=== PATIENT | male | born 1975 | race Caucasian/White ===

== ENCOUNTER 2017-04-28 22:17 | Emergency (ER) | payer SELFPAY ==
[2017-04-28 22:32] VITALS: BP 143/77; PULSE 100; TEMP 98.2; BMI 25.8
--- NOTE | 2017-04-28 23:29 | PDOC ---
History of Present Illness - History of Present Illness Initial Comments: 04/28/17 23:37 Patient is a 41 year old male with no significant medical hx who has been brought to the ED via EMS for alcohol intoxication. The patient was found passed out on the ground outside on the street. The patient is a poor historian and states that he does not know why he was brought here. He notes that he had two [place] iced teas today. Denies any headache, abdominal pain, chest pain , shortness of breath, nausea, vomiting, or diarrhea. Patient is requesting to go home and does not offer any complaints. <Hiral Barrow - Last Filed: 04/28/17 23:37> <Mohamud Chowdhury - Last Filed: 04/29/17 00:32> - General Chief Complaint: Alcohol intoxication Stated Complaint: Alcohol intoxication Time Seen by Provider: 04/28/17 23:09 Past History <Hiral Barrow - Last Filed: 04/28/17 23:37> - Psycho/Social/Smoking Cessation Hx Suicidal Ideation: No Smoking History: Unknown if ever smoked Information on smoking cessation initiated: No Hx Alcohol Use: No Drug/Substance Use Hx: No <Mohamud Chowdhury - Last Filed: 04/29/17 00:32> - Past Medical History Allergies/Adverse Reactions: Allergies Allergy/AdvReac Type Severity Reaction Status Date / Time No Known Allergies Allergy Verified 04/28/17 22:28 Home Medications: Ambulatory Orders Acetaminophen [Tylenol] 650 mg PO QID PRN #30 tablet 02/26/14 Review of Systems - Review of Systems Comments:: 04/28/17 23:39 CONSTITUTIONAL: No fever, no chills, no fatigue EYES: No visual changes ENT: No ear pain, no sore throat CARDIOVASCULAR: No chest pain, no palpitations RESPIRATORY: No cough, no SOB GI: No abdominal pain, no nausea, no vomiting, no constipation, no diarrhea GENITOURINARY: No dysuria, no frequency, no hematuria MUSKULOSKELETAL: No backpain, no joint pain, no myalgias SKIN: No rash NEURO: No headache <Hiral Barrow - Last Filed: 04/28/17 23:37> *Physical Exam - Vital Signs Last Vital Signs Temp Pulse Resp BP Pulse Ox 98.2 F 100 H 14 143/77 96 04/28/17 22:31 04/28/17 22:31 04/28/17 22:31 04/28/17 22:31 04/28/17 22:31 - Physical Exam Comments: 04/28/17 23:39 CONSTITUTIONAL: Obese; alcohol on breath; in no apparent distress HEAD: Normocephalic; atraumatic EYES: PERRL; EOM intact ENMT: External appears normal; normal oropharynx NECK: Supple; non-tender; no cervical lymphadenopathy CARD: Normal S1, S2; no murmurs, rubs, or gallops RESP: Normal chest excursion with respiration; breath sounds clear and equal bilaterally; no wheezes, rhonchi, or rales ABD: Soft, non-distended; non-tender; no palpable organomegaly, reproducible umbilical hernia EXT: Normal ROM in all four extremities; non-tender to palpation; distal pulses intact SKIN: Warm, dry, no rash NEURO: No focal neurological deficiencies; gait is stable <Hiral Barrow - Last Filed: 04/28/17 23:37> - Vital Signs Last Vital Signs Temp Pulse Resp BP Pulse Ox 98.2 F 100 H 14 143/77 96 04/28/17 22:31 04/28/17 22:31 04/28/17 22:31 04/28/17 22:31 04/28/17 22:31 <Mohamud Chowdhury - Last Filed: 04/29/17 00:32> Medical Decision Making - Medical Decision Making 04/29/17 00:29 Patient is a well-appearing 41-year-old male who presented to the ER after being unresponsive on the ground. Patient reports consuming several alcoholic beverages and falling asleep. Patient denies head trauma/headache/changes in visual acuity/nausea/vomiting/chest pain/abdominal pain. There is no evidence of head trauma, full range of motion in all 4 extremities, cervical spine reveals no deformity or midline tenderness. Patient knows where he is, how to get at home and is displaying steady gait. Will discharge. <Mohamud Chowdhury - Last Filed: 04/29/17 00:32> *DC/Admit/Observation/Transfer - Attestations Scribe Attestion: 04/28/17 23:42 Documentation prepared by Hiral Barrow, acting as certified medical asst for Mohamud Chowdhury MD. <Hiral Barrow - Last Filed: 04/28/17 23:37> - Attestations Physician Attestion: 04/29/17 00:29 The documentation was prepared by the scribe under my direct supervision. I have reviewed the documentation which correctly represents the findings, medical decision-making and critical action taken by me. <Mohamud Chowdhury - Last Filed: 04/29/17 00:32> Diagnosis at time of Disposition: Alcohol abuse - Discharge Dispostion Disposition: HOME Condition at time of disposition: Stable - Referrals Referrals: [facility] [Provider Group] - Patient Instructions Printed Discharge Instructions: DI for Alcohol Abuse
[2017-04-28] MEDS ORDERED: DEXTROSE 5%-0.45% SALINE 1,000 ML IV SCH (23:30)
== END 2017-04-29 00:54 | disposition home or self-care (01) ==
LOC: JER 22:17
DX: F10.120 Alcohol abuse with intoxication, uncomplicated (principal); Y90.9 Presence of alcohol in blood, level not specified
CPT/HCPCS: 99282-25

== ENCOUNTER 2020-10-22 16:27 | Emergency (ER) | payer SELFPAY ==
[2020-10-22 16:36] VITALS: TEMP 98.3; BMI 30.9
[2020-10-22 17:56] LABS: BASO % 1.4 % (0-2.0); HEMATOCRIT 25.4 % (35.4-49); HEMOGLOBIN 7.4 GM/dL (11.7-16.9); MCHC 29.2 g/dl (32.0-35.9); MEAN CELL VOLUME 65.5 fl (80-96); MEAN PLT VOLUME 8.6 fl (7.5-11.1); MONO % 8.7 % (3.8-10.2); NEUT % 72.9 % (42.8-82.8); PLATELET COUNT 99 K/MM3 (134-434); RBC 3.87 M/mm3 (4.00-5.60); RDW 20.3 % (11.9-15.9); WHITE BLOOD COUNT 4.9 K/mm3 (4.0-10.0)
[2020-10-22 17:56] LABS: EPI CELLS 22 /uL (0-25.1); HYALINE CASTS 2 /uL (0-3.1); URINE APPEARANCE CLEAR; URINE BACTERIA 2506 /uL (0-1359); URINE BILIRUBIN 1+ (NEGATIVE); URINE COLOR DK YELLOW; URINE GLUCOSE (UA) NEGATIVE (NEGATIVE); URINE KETONE 4+ (NEGATIVE); URINE LEUK ESTERASE NEGATIVE (NEGATIVE); URINE NITRITE NEGATIVE (NEGATIVE); URINE PROTEIN 2+ (NEGATIVE); URINE RBC 7 /uL (0-23.9); URINE WBC 7 /uL (0-25.8)
[2020-10-22 17:58] LABS: MCH 19.1 pg (25.7-33.7)
[2020-10-22 18:13] LABS: INR 1.26 (0.83-1.09); PROTHROMBIN TIME (PATIENT) 15.1 SEC (9.7-13.0)
[2020-10-22 18:15] LABS: ACTIVATED PTT 30.9 SECONDS (25.2-36.5)
[2020-10-22 18:28] LABS: CHLORIDE 100 mmol/L (98-107); POTASSIUM 3.5 mmol/L (3.5-5.1); SODIUM 137 mmol/L (136-145)
[2020-10-22 18:30] LABS: ALBUMIN 3.5 g/dl (3.4-5.0); ANION GAP 14 MMOL/L (8-16); CALCIUM 8.4 mg/dL (8.5-10.1); CO2 24 mmol/L (21-32)
[2020-10-22 18:31] LABS: BLOOD UREA NITROGEN 7.8 mg/dL (7-18); GLUCOSE,RANDOM 104 mg/dL (74-106); MAGNESIUM 1.4 mg/dL (1.8-2.4)
[2020-10-22 18:33] LABS: SGPT/ALT 50 U/L (13-61)
[2020-10-22 18:34] LABS: CREATININE 0.6 mg/dL (0.55-1.3); SGOT/AST 156 U/L (15-37)
[2020-10-22 18:35] LABS: BILIRUBIN,TOTAL 1.5 mg/dL (0.2-1); TOT PROT 8.7 g/dl (6.4-8.2)
[2020-10-22 18:36] LABS: ALK PHOS 202 U/L (45-117)
[2020-10-22 19:49] LABS: ANISOCYTOSIS 3+; MACROCYTOSIS 1+; PLATELET ESTIMATE DECREASED; TARGET CELLS 1+
[2020-10-22 23:06] VITALS: BP 150/78; PULSE 94
== END 2020-10-22 23:06 | disposition home or self-care (01) ==
LOC: JER 16:27
DX: D69.6 Thrombocytopenia, unspecified (principal); D53.9 Nutritional anemia, unspecified
CPT/HCPCS: 36415; 71046-TC-FY; 71275-TC; 80053; 81003; 82550; 82553; 83735; 84484; 85025; 85379; 85610; 85730; 93005; 93010; 99285-25; C9803; Q9967; U0003

== ENCOUNTER 2021-02-02 10:26 | Inpatient (IN) | payer OTHER ==
[2021-02-02] MEDS ORDERED: SODIUM CHLORIDE 1,000 ML IV STA (11:05)
[2021-02-02] MEDS ORDERED: FOLIC ACID INJECTION - 1 MG, THIAMINE HCL 100 MG, MULTIVIT INJECTION ADULT 10 ML in SOD... IVPB ONE (11:33)
[2021-02-02 12:05] LABS: BASO % 1.5 % (0-2.0); EOS % 0.3 % (0-4.5); MCH 20.7 pg (25.7-33.7); MCHC 28.6 g/dl (32.0-35.9); MEAN CELL VOLUME 72.5 fl (80-96); MEAN PLT VOLUME 8.3 fl (7.5-11.1); MONO % 5.4 % (3.8-10.2); NEUT % 75.8 % (42.8-82.8); PLATELET COUNT 128 K/MM3 (134-434); RBC 2.48 M/mm3 (4.00-5.60); RDW 25.2 % (11.9-15.9); WHITE BLOOD COUNT 7.3 K/mm3 (4.0-10.0)
[2021-02-02 12:07] LABS: HEMOGLOBIN 5.1 GM/dL (11.7-16.9)
[2021-02-02 12:10] LABS: CHLORIDE 108 mmol/L (98-107); SODIUM 144 mmol/L (136-145)
[2021-02-02 12:12] LABS: ALBUMIN 2.2 g/dl (3.4-5.0); CALCIUM 7.4 mg/dL (8.5-10.1)
[2021-02-02 12:13] LABS: ANION GAP 10 MMOL/L (8-16); BLOOD UREA NITROGEN 4.1 mg/dL (7-18); CO2 26 mmol/L (21-32); GLUCOSE,RANDOM 115 mg/dL (74-106); LIPASE 391 U/L (73-393); MAGNESIUM 1.5 mg/dL (1.8-2.4)
[2021-02-02 12:16] LABS: SGOT/AST 146 U/L (15-37)
[2021-02-02 12:17] LABS: TOT PROT 8.5 g/dl (6.4-8.2)
[2021-02-02 12:18] LABS: CREATININE 0.6 mg/dL (0.55-1.3)
[2021-02-02 12:19] LABS: ALK PHOS 406 U/L (45-117)
[2021-02-02] MEDS ORDERED: chlordiazePOXIDE HCL 25 MG CAPSULE PO ONE (12:20)
[2021-02-02 12:21] LABS: SGPT/ALT 26 U/L (13-61)
[2021-02-02 12:46] LABS: ANISOCYTOSIS 0; MACROCYTOSIS 0; OVALOCYTE 1+; PLATELET ESTIMATE DECREASED
[2021-02-02 15:41] LABS: URINE APPEARANCE CLEAR; URINE BILIRUBIN 1+ (NEGATIVE); URINE COLOR DK YELLOW; URINE GLUCOSE (UA) NEGATIVE (NEGATIVE); URINE KETONE TRACE (NEGATIVE); URINE LEUK ESTERASE NEGATIVE (NEGATIVE); URINE NITRITE NEGATIVE (NEGATIVE); URINE PROTEIN TRACE (NEGATIVE); URINE UROBILINOGEN 4.0 E.U/dl mg/dL (0.2-1.0)
[2021-02-02 16:00] LABS: URINE AMPHETAMINES NEGATIVE ng/ml (CUTOFF=500)
[2021-02-02 16:01] LABS: COCAINE, UR NEGATIVE ng/ml (CUTOFF=300); OPIATES, URI NEGATIVE ng/ml (CUTOFF=300); PHENCYCLIDINE,URINE NEGATIVE ng/ml (CUTOFF=25); URINE BARBITURATES NEGATIVE ng/ml (CUTOFF=200); URINE BENZODIAZEPINES NEGATIVE ng/ml (CUTOFF=200)
[2021-02-02 16:22] LABS: METHADONE, UR NEGATIVE ng/ml (CUTOFF=300)
[2021-02-02] MEDS ORDERED: PHYTONADIONE 10 MG/1 ML AMP IM ONE (16:55)
[2021-02-02] MEDS ORDERED: OCTREOTIDE ACETATE 200 MCG, OCTREOTIDE ACETATE 1,000 MCG in DEXTROSE 5%-WATER - 496 ML IVPB SCH (17:00)
[2021-02-02] MEDS ORDERED: PHYTONADIONE 10 MG/1 ML AMP ONE (17:46)
[2021-02-02] MEDS ORDERED: CEFTRIAXONE 1 GM/50 ML BAG ONE (17:46)
[2021-02-02] MEDS: CEFTRIAXONE 1 GM in DEXTROSE 5%-WATER - 50 ML IVPB SCH (18:00)
[2021-02-02] MEDS ORDERED: ONDANSETRON 4 MG/2 ML VIAL ONE (18:34)
[2021-02-02] MEDS ORDERED: PANTOPRAZOLE SODIUM 40 MG in SODIUM CHLORIDE 100 ML IVPB SCH (22:00)
[2021-02-02] MEDS ORDERED: LORazepam 1 MG TABLET PO ONE (22:57)
[2021-02-02] MEDS ORDERED: LORazepam 1 MG TABLET PO PRN (22:57)
[2021-02-02] MEDS ORDERED: LORazepam 2 MG TABLET PO SCH (23:00)
[2021-02-02 23:29] LABS: EOS % 0.1 % (0-4.5); HEMATOCRIT 19.8 % (35.4-49); LYMPH % 13.7 % (8-40); MCHC 29.7 g/dl (32.0-35.9); MEAN CELL VOLUME 77.3 fl (80-96); MEAN PLT VOLUME 8.3 fl (7.5-11.1); MONO % 5.2 % (3.8-10.2); PLATELET COUNT 92 K/MM3 (134-434); RBC 2.56 M/mm3 (4.00-5.60); RDW 25.2 % (11.9-15.9); WHITE BLOOD COUNT 7.5 K/mm3 (4.0-10.0)
[2021-02-02 23:30] LABS: HEMOGLOBIN 5.9 GM/dL (11.7-16.9)
[2021-02-02 23:40] LABS: INR 1.39 (0.83-1.09); PROTHROMBIN TIME (PATIENT) 16.9 SEC (9.7-13.0)
[2021-02-02 23:42] LABS: ACTIVATED PTT 33.4 SECONDS (25.2-36.5)
[2021-02-02 23:56] LABS: BILIRUBIN,DIRECT 1.6 mg/dL (0.0-0.2); SGOT/AST 123 U/L (15-37); SGPT/ALT 22 U/L (13-61)
[2021-02-02 23:58] LABS: BILIRUBIN,TOTAL 2.1 mg/dL (0.2-1); TOT PROT 7.7 g/dl (6.4-8.2)
[2021-02-03 00:32] LABS: ALK PHOS 360 U/L (45-117)
[2021-02-03] MEDS ORDERED: PANTOPRAZOLE SODIUM 40 MG/100 ML BAG IVPB ONE (00:50)
[2021-02-03] MEDS: PANTOPRAZOLE SODIUM 40 MG VIAL IVPB SCH ×2 (01:05→10:00)
[2021-02-03] MEDS ORDERED: LORazepam 1 MG TABLET ONE ×2 (05:16→12:12)
[2021-02-03] MEDS: LORazepam 1 MG TABLET PO SCH ×5 (05:20→23:17)
[2021-02-03 07:15] LABS: BASO % 1.4 % (0-2.0); EOS % 0.1 % (0-4.5); HEMATOCRIT 20.5 % (35.4-49); LYMPH % 14.1 % (8-40); MCH 23.6 pg (25.7-33.7); MCHC 30.5 g/dl (32.0-35.9); MEAN CELL VOLUME 77.6 fl (80-96); MEAN PLT VOLUME 8.1 fl (7.5-11.1); MONO % 4.9 % (3.8-10.2); NEUT % 79.5 % (42.8-82.8); PLATELET COUNT 80 K/MM3 (134-434); RBC 2.64 M/mm3 (4.00-5.60); WHITE BLOOD COUNT 7.3 K/mm3 (4.0-10.0)
[2021-02-03 07:38] LABS: CALCIUM 7.2 mg/dL (8.5-10.1)
[2021-02-03 07:39] LABS: BLOOD UREA NITROGEN 3.1 mg/dL (7-18); MAGNESIUM 1.3 mg/dL (1.8-2.4)
[2021-02-03 07:41] LABS: PHOSPHOROUS 4.1 mg/dL (2.5-4.9)
[2021-02-03 07:42] LABS: BILIRUBIN,TOTAL 2.9 mg/dL (0.2-1); CREATININE 0.5 mg/dL (0.55-1.3); TOT PROT 7.8 g/dl (6.4-8.2)
[2021-02-03] MEDS ORDERED: MAGNESIUM SULF 50% (8.12 MEQ/2 ML-1 GM VIAL) IVPB ONE (07:51)
[2021-02-03 08:17] LABS: HEMOGLOBIN 6.3 GM/dL (11.7-16.9)
[2021-02-03] MEDS ORDERED: predniSONE 20 MG TABLET (UD) ONE (09:31)
[2021-02-03] MEDS ORDERED: predniSONE 20 MG TABLET (UD) PO SCH (10:00)
[2021-02-03] MEDS ORDERED: LACTULOSE 20 GM/30 ML UDC (FOR ORAL USE ONLY) PO SCH (11:00)
[2021-02-03 11:21] LABS: RETICULOCYTES 2.06 % (0.5-1.5)
[2021-02-03] MEDS ORDERED: PANTOPRAZOLE SODIUM 80 MG in SODIUM CHLORIDE 100 ML IVPB SCH (12:00)
[2021-02-03] MEDS ORDERED: LACTULOSE 20 GM/30 ML UDC (FOR ORAL USE ONLY) ONE (12:11)
[2021-02-03] MEDS ORDERED: CEFTRIAXONE 1 GM/50 ML BAG ONE (12:12)
[2021-02-03] MEDS: CEFTRIAXONE 1 GM in DEXTROSE 5%-WATER - 50 ML IVPB SCH (13:18)
[2021-02-03] MEDS: DEXTROSE 5%-0.45% SALINE 1,000 ML IV SCH (13:36)
[2021-02-03 19:48] LABS: BASO % 0.5 % (0-2.0); HEMATOCRIT 22.8 % (35.4-49); LYMPH % 6.1 % (8-40); MCH 24.5 pg (25.7-33.7); MCHC 30.7 g/dl (32.0-35.9); MEAN CELL VOLUME 79.8 fl (80-96); MEAN PLT VOLUME 8.7 fl (7.5-11.1); MONO % 2.2 % (3.8-10.2); NEUT % 91.2 % (42.8-82.8); PLATELET COUNT 68 K/MM3 (134-434); RBC 2.86 M/mm3 (4.00-5.60); WHITE BLOOD COUNT 6.3 K/mm3 (4.0-10.0)
[2021-02-03 19:54] LABS: INR 1.47 (0.83-1.09); PROTHROMBIN TIME (PATIENT) 17.6 SEC (9.7-13.0)
[2021-02-03 20:56] LABS: ANISOCYTOSIS 2+; MACROCYTOSIS 0; PLATELET ESTIMATE DECREASED
[2021-02-03 23:35] VITALS: BMI 31.0
[2021-02-04] MEDS: LORazepam 1 MG TABLET PO SCH ×4 (06:56→22:00)
[2021-02-04 07:39] LABS: MCH 25.1 pg (25.7-33.7); MCHC 31.6 g/dl (32.0-35.9); MEAN CELL VOLUME 79.3 fl (80-96); MEAN PLT VOLUME 8.3 fl (7.5-11.1); PLATELET COUNT 70 K/MM3 (134-434); RBC 2.78 M/mm3 (4.00-5.60); RDW 23.3 % (11.9-15.9); WHITE BLOOD COUNT 7.6 K/mm3 (4.0-10.0)
[2021-02-04 08:09] LABS: CALCIUM 7.2 mg/dL (8.5-10.1)
[2021-02-04 08:10] LABS: ALBUMIN 1.8 g/dl (3.4-5.0); BLOOD UREA NITROGEN 3.9 mg/dL (7-18); MAGNESIUM 1.6 mg/dL (1.8-2.4)
[2021-02-04 08:12] LABS: CREATININE 0.5 mg/dL (0.55-1.3)
[2021-02-04 08:14] LABS: BILIRUBIN,TOTAL 2.7 mg/dL (0.2-1); TOT PROT 7.2 g/dl (6.4-8.2)
[2021-02-04] MEDS: DEXTROSE 5%-0.45% SALINE 1,000 ML IV SCH ×2 (08:17→12:55)
[2021-02-04 08:56] LABS: INR 1.54 (0.83-1.09); PROTHROMBIN TIME (PATIENT) 18.4 SEC (9.7-13.0)
[2021-02-04] MEDS ORDERED: DEXTROSE 5%-WATER - 50 ML IVPB ONE (09:15)
[2021-02-04] MEDS ORDERED: cefTRIAXone SODIUM 1 GM VIAL ONE (09:15)
[2021-02-04] MEDS: CEFTRIAXONE 1 GM in DEXTROSE 5%-WATER - 50 ML IVPB SCH (09:29)
[2021-02-04] MEDS ORDERED: MAGNESIUM SULF 50% (8.12 MEQ/2 ML-1 GM VIAL) IVPB ONE (10:00)
[2021-02-04] MEDS ORDERED: PANTOPRAZOLE 40 MG TABLET PO SCH (10:00)
[2021-02-04] MEDS: FOLIC ACID 1 MG TABLET (FP) PO SCH (11:53)
[2021-02-04] MEDS: THIAMINE HCL 100 MG TABLET (FP) PO SCH (11:53)
[2021-02-04] MEDS ORDERED: POTASSIUM CHLORIDE TABS 20 MEQ TABLET.ER (FP) PO ONE (12:00)
[2021-02-04] MEDS ORDERED: PHYTONADIONE 10 MG/1 ML AMP IVPB ONE (17:11)
[2021-02-04 21:36] LABS: BASO % 0.5 % (0-2.0); EOS % 0.4 % (0-4.5); HEMATOCRIT 25.2 % (35.4-49); HEMOGLOBIN 7.9 GM/dL (11.7-16.9); LYMPH % 16.2 % (8-40); MCH 25.4 pg (25.7-33.7); MCHC 31.3 g/dl (32.0-35.9); MEAN CELL VOLUME 81.2 fl (80-96); MEAN PLT VOLUME 8.7 fl (7.5-11.1); MONO % 4.9 % (3.8-10.2); PLATELET COUNT 73 K/MM3 (134-434); RBC 3.11 M/mm3 (4.00-5.60); RDW 22.4 % (11.9-15.9); WHITE BLOOD COUNT 8.8 K/mm3 (4.0-10.0)
[2021-02-05] MEDS ORDERED: LORazepam 0.5 MG TABLET PO PRN
[2021-02-05] MEDS: LORazepam 0.5 MG TABLET PO SCH ×4 (05:57→22:19)
[2021-02-05] MEDS: DEXTROSE 5%-0.45% SALINE 1,000 ML IV SCH ×2 (05:58→11:37)
[2021-02-05 06:50] LABS: HEMATOCRIT 27.6 % (35.4-49); MCH 26.5 pg (25.7-33.7); MCHC 32.5 g/dl (32.0-35.9); MEAN CELL VOLUME 81.4 fl (80-96); MEAN PLT VOLUME 8.7 fl (7.5-11.1); PLATELET COUNT 73 K/MM3 (134-434); RBC 3.39 M/mm3 (4.00-5.60); RDW 21.4 % (11.9-15.9); WHITE BLOOD COUNT 8.4 K/mm3 (4.0-10.0)
[2021-02-05 06:54] LABS: INR 1.51 (0.83-1.09); PROTHROMBIN TIME (PATIENT) 18.3 SEC (9.7-13.0)
[2021-02-05 07:08] LABS: BLOOD UREA NITROGEN 3.2 mg/dL (7-18); CALCIUM 7.2 mg/dL (8.5-10.1); MAGNESIUM 1.3 mg/dL (1.8-2.4)
[2021-02-05 07:12] LABS: CREATININE 0.5 mg/dL (0.55-1.3)
[2021-02-05 07:13] LABS: BILIRUBIN,TOTAL 3.9 mg/dL (0.2-1); TOT PROT 7.3 g/dl (6.4-8.2)
[2021-02-05] MEDS ORDERED: MAGNESIUM SULF 50% (8.12 MEQ/2 ML-1 GM VIAL) IVPB ONE (08:40)
[2021-02-05] MEDS ORDERED: PEG 3350/NA SULF BICARB CL/KCL 4000 ML SOLN.RECON PO ONE (09:00)
[2021-02-05] MEDS ORDERED: DEXTROSE 5%-WATER - 50 ML IVPB ONE (09:20)
[2021-02-05] MEDS ORDERED: cefTRIAXone SODIUM 1 GM VIAL ONE (09:20)
[2021-02-05] MEDS: FOLIC ACID 1 MG TABLET (FP) PO SCH (09:46)
[2021-02-05] MEDS: THIAMINE HCL 100 MG TABLET (FP) PO SCH (09:46)
[2021-02-05] MEDS: CEFTRIAXONE 1 GM in DEXTROSE 5%-WATER - 50 ML IVPB SCH (09:46)
[2021-02-05] MEDS ORDERED: BISACODYL 5 MG TABLET.DR (FP) PO ONE (18:00)
[2021-02-06] MEDS ORDERED: LORazepam 0.5 MG TABLET PO ONE (05:00)
[2021-02-06 06:45] LABS: HEMATOCRIT 25.4 % (35.4-49); HEMOGLOBIN 8.3 GM/dL (11.7-16.9); MCHC 32.9 g/dl (32.0-35.9); MEAN PLT VOLUME 8.4 fl (7.5-11.1); PLATELET COUNT 77 K/MM3 (134-434); RBC 3.09 M/mm3 (4.00-5.60); RDW 21.9 % (11.9-15.9); WHITE BLOOD COUNT 7.6 K/mm3 (4.0-10.0)
[2021-02-06 06:57] LABS: INR 1.64 (0.83-1.09); PROTHROMBIN TIME (PATIENT) 19.6 SEC (9.7-13.0)
[2021-02-06 07:02] LABS: ALBUMIN 1.8 g/dl (3.4-5.0); BLOOD UREA NITROGEN 3.5 mg/dL (7-18); MAGNESIUM 1.5 mg/dL (1.8-2.4)
[2021-02-06 07:05] LABS: CREATININE 0.4 mg/dL (0.55-1.3)
[2021-02-06 07:07] LABS: BILIRUBIN,TOTAL 3.8 mg/dL (0.2-1); TOT PROT 6.7 g/dl (6.4-8.2)
[2021-02-06] MEDS ORDERED: cefTRIAXone SODIUM 1 GM VIAL ONE (09:10)
[2021-02-06] MEDS ORDERED: DEXTROSE 5%-WATER - 50 ML IVPB ONE (09:10)
[2021-02-06] MEDS: DEXTROSE 5%-0.45% SALINE 1,000 ML IV SCH (09:14)
[2021-02-06] MEDS: THIAMINE HCL 100 MG TABLET (FP) PO SCH (09:15)
[2021-02-06] MEDS: FOLIC ACID 1 MG TABLET (FP) PO SCH (09:15)
[2021-02-06] MEDS: CEFTRIAXONE 1 GM in DEXTROSE 5%-WATER - 50 ML IVPB SCH (09:15)
[2021-02-07 06:38] LABS: HEMATOCRIT 24.4 % (35.4-49); HEMOGLOBIN 7.8 GM/dL (11.7-16.9); MCH 26.8 pg (25.7-33.7); MCHC 31.9 g/dl (32.0-35.9); MEAN CELL VOLUME 84.1 fl (80-96); MEAN PLT VOLUME 8.4 fl (7.5-11.1); PLATELET COUNT 83 K/MM3 (134-434); RDW 22.8 % (11.9-15.9); WHITE BLOOD COUNT 6.7 K/mm3 (4.0-10.0)
[2021-02-07 07:12] LABS: ALBUMIN 1.8 g/dl (3.4-5.0); BILIRUBIN,TOTAL 3.8 mg/dL (0.2-1); BLOOD UREA NITROGEN 3.4 mg/dL (7-18); CALCIUM 7.1 mg/dL (8.5-10.1); CREATININE 0.4 mg/dL (0.55-1.3); MAGNESIUM 1.3 mg/dL (1.8-2.4); TOT PROT 6.4 g/dl (6.4-8.2)
[2021-02-07] MEDS ORDERED: MAGNESIUM SULF 50% (8.12 MEQ/2 ML-1 GM VIAL) IVPB ONE (08:43)
[2021-02-07] MEDS: THIAMINE HCL 100 MG TABLET (FP) PO SCH (09:01)
[2021-02-07] MEDS: FOLIC ACID 1 MG TABLET (FP) PO SCH (09:01)
[2021-02-07] MEDS ORDERED: POTASSIUM CHLORIDE TABS 20 MEQ TABLET.ER (FP) PO ONE (12:45)
[2021-02-07] MEDS: DEXTROSE 5%-0.45% SALINE 1,000 ML IV SCH (12:47)
[2021-02-07 15:59] LABS: CALCIUM 7.2 mg/dL (8.5-10.1)
[2021-02-07 16:00] LABS: BLOOD UREA NITROGEN 3.5 mg/dL (7-18)
[2021-02-07 16:03] LABS: CREATININE 0.5 mg/dL (0.55-1.3)
[2021-02-08 07:10] LABS: HEMATOCRIT 24.1 % (35.4-49); HEMOGLOBIN 7.7 GM/dL (11.7-16.9); MCH 27.1 pg (25.7-33.7); MCHC 32.2 g/dl (32.0-35.9); MEAN CELL VOLUME 84.2 fl (80-96); MEAN PLT VOLUME 7.8 fl (7.5-11.1); PLATELET COUNT 99 K/MM3 (134-434); RBC 2.86 M/mm3 (4.00-5.60); RDW 23.1 % (11.9-15.9); WHITE BLOOD COUNT 6.3 K/mm3 (4.0-10.0)
[2021-02-08 07:31] LABS: CALCIUM 7.5 mg/dL (8.5-10.1)
[2021-02-08 07:32] LABS: BLOOD UREA NITROGEN 3.8 mg/dL (7-18); MAGNESIUM 1.7 mg/dL (1.8-2.4)
[2021-02-08 07:35] LABS: CREATININE 0.4 mg/dL (0.55-1.3)
[2021-02-08 07:36] LABS: TOT PROT 6.6 g/dl (6.4-8.2)
[2021-02-08] MEDS ORDERED: POTASSIUM CHLORIDE TABS 20 MEQ TABLET.ER (FP) PO ONE ×2 (09:01→14:00)
[2021-02-08] MEDS ORDERED: MAGNESIUM SULF 50% (8.12 MEQ/2 ML-1 GM VIAL) IVPB ONE ×2 (09:01→11:50)
[2021-02-08] MEDS: THIAMINE HCL 100 MG TABLET (FP) PO SCH (09:58)
[2021-02-08] MEDS: FOLIC ACID 1 MG TABLET (FP) PO SCH (09:58)
[2021-02-08 18:34] VITALS: BP 133/82; PULSE 103; TEMP 98
== END 2021-02-08 19:42 | disposition home or self-care (01) | DRG 254 ==
LOC: JER 10:26 → JERBED 16:03 → J4S 02-03 20:43
PROVIDERS: ADMIT Family Medicine; ATTEND Internal Medicine
PROC: 30233N1 Transfusion of Nonautologous Red Blood Cells into Peripheral Vein, Percutaneous Approach (ICD-10-PCS; 2021-02-02)
PROC: 30233L1 Transfusion of Nonautologous Fresh Plasma into Peripheral Vein, Percutaneous Approach (ICD-10-PCS; 2021-02-02)
PROC: 30233K1 Transfusion of Nonautologous Frozen Plasma into Peripheral Vein, Percutaneous Approach (ICD-10-PCS; 2021-02-02)
PROC: 0DJ08ZZ Inspection of Upper Intestinal Tract, Via Natural or Artificial Opening Endoscopic (ICD-10-PCS; principal; 2021-02-03 16:25)
PROC: 0DBH8ZX Excision of Cecum, Via Natural or Artificial Opening Endoscopic, Diagnostic (ICD-10-PCS; 2021-02-06)
PROC: 0DBL8ZX Excision of Transverse Colon, Via Natural or Artificial Opening Endoscopic, Diagnostic (ICD-10-PCS; 2021-02-06)
DX: K64.8 Other hemorrhoids (principal); K72.00 Acute and subacute hepatic failure without coma; K70.10 Alcoholic hepatitis without ascites; D69.6 Thrombocytopenia, unspecified; K70.30 Alcoholic cirrhosis of liver without ascites; D68.9 Coagulation defect, unspecified; R79.89 Other specified abnormal findings of blood chemistry; D62 Acute posthemorrhagic anemia; I44.7 Left bundle-branch block, unspecified; R16.0 Hepatomegaly, not elsewhere classified; E88.09 Other disorders of plasma-protein metabolism, not elsewhere classified; K63.5 Polyp of colon; F10.220 Alcohol dependence with intoxication, uncomplicated; K62.5 Hemorrhage of anus and rectum; K29.21 Alcoholic gastritis with bleeding; D68.4 Acquired coagulation factor deficiency; F10.239 Alcohol dependence with withdrawal, unspecified; I85.00 Esophageal varices without bleeding; F10.229 Alcohol dependence with intoxication, unspecified
CPT/HCPCS: 36415; 36430; 36511; 71046-TC-FY; 74177-TC; 76705-TC; 80048; 80053; 80061; 80074; 80076; 80307; 81003; 82105; 82140; 82272; 82550; 82607; 82728; 82746; 82962; 82977; 83010; 83036; 83540; 83550; 83615; 83690; 83721; 83735; 84100; 84443; 84484; 85025; 85027; 85045; 85610; 85730; 86140; 86803; 86850; 86900; 86901; 86922; 87086; 88305-TC; 93005; 93010; 93306-TC; 99291; C9803; P9017; P9038; P9058; Q9967; U0003; U0005

== ENCOUNTER 2021-05-11 06:42 | Emergency (ER) | payer OTHER ==
[2021-05-11 07:01] VITALS: BMI 26.6
[2021-05-11] MEDS ORDERED: PANTOPRAZOLE 40 MG TABLET PO ONE (08:22)
[2021-05-11] MEDS ORDERED: PANTOPRAZOLE SODIUM 40 MG VIAL IVPUSH ONE (08:30)
[2021-05-11] MEDS ORDERED: CEFTRIAXONE 1 GM in DEXTROSE 5%-WATER - 100 ML IVPB ONE (08:30)
[2021-05-11] MEDS ORDERED: OCTREOTIDE ACETATE 50 MCG/1 ML - 1 ML VIAL IVPUSH ONE (08:31)
[2021-05-11] MEDS ORDERED: PANTOPRAZOLE SODIUM 40 MG VIAL ONE (08:47)
[2021-05-11] MEDS ORDERED: CEFTRIAXONE 1 GM/50 ML BAG ONE (08:48)
[2021-05-11 09:11] LABS: INR 1.55 (0.83-1.09); PROTHROMBIN TIME (PATIENT) 18.5 SEC (9.7-13.0)
[2021-05-11 09:13] LABS: ACTIVATED PTT 39.4 SECONDS (25.2-36.5)
[2021-05-11 09:15] LABS: CHLORIDE 108 mmol/L (98-107); SODIUM 144 mmol/L (136-145)
[2021-05-11 09:17] LABS: CALCIUM 7.1 mg/dL (8.5-10.1); HEMATOCRIT 27.5 % (35.4-49); HEMOGLOBIN 8.9 GM/dL (11.7-16.9); MCHC 32.4 g/dl (32.0-35.9); MEAN CELL VOLUME 73.9 fl (80-96); MEAN PLT VOLUME 8.3 fl (7.5-11.1); PLATELET COUNT 44 10^3/uL (134-434); RBC 3.73 M/mm3 (4.00-5.60); RDW 22.5 % (11.9-15.9); RETICULOCYTES 2.36 % (0.5-1.5); WHITE BLOOD COUNT 4.1 K/mm3 (4.0-10.0)
[2021-05-11 09:18] LABS: ALBUMIN 2.7 g/dl (3.4-5.0); ANION GAP 9 MMOL/L (8-16); CO2 27 mmol/L (21-32); GLUCOSE,RANDOM 119 mg/dL (74-106); MAGNESIUM 1.6 mg/dL (1.8-2.4)
[2021-05-11 09:21] LABS: CREATININE 0.5 mg/dL (0.55-1.3); SGOT/AST 238 U/L (15-37); SGPT/ALT 45 U/L (13-61)
[2021-05-11 09:23] LABS: ALK PHOS 379 U/L (45-117); BILIRUBIN,TOTAL 1.9 mg/dL (0.2-1)
[2021-05-11 09:29] LABS: BLOOD UREA NITROGEN 2.5 mg/dL (7-18)
[2021-05-11] MEDS ORDERED: MAGNESIUM SULF 50% (8.12 MEQ/2 ML-1 GM VIAL) IVPB ONE (09:56)
[2021-05-11] MEDS ORDERED: KCL 10 MEQ IVPB 10 MEQ/100 ML INFUS.BAG IVPB SCH (10:00)
[2021-05-11] MEDS ORDERED: KCL 10 MEQ IVPB 10 MEQ/100 ML INFUS.BAG IVPB ONE (10:03)
[2021-05-11] MEDS ORDERED: MAGNESIUM 1GM/D5W - 1 GM/100 ML IVPB IVPB ONE (10:03)
[2021-05-11 11:26] VITALS: TEMP 98.5
[2021-05-11 12:53] VITALS: BP 116/62; PULSE 80
== END 2021-05-11 13:30 | disposition short-term general hospital (02) ==
LOC: JER 06:42
PROC: 3E03329 Introduction of Other Anti-infective into Peripheral Vein, Percutaneous Approach (ICD-10-PCS; principal; 2021-05-11)
PROC: 3E033GC Introduction of Other Therapeutic Substance into Peripheral Vein, Percutaneous Approach (ICD-10-PCS; 2021-05-11)
PROC: 3E033GC Introduction of Other Therapeutic Substance into Peripheral Vein, Percutaneous Approach (ICD-10-PCS; 2021-05-11)
PROC: 3E033GC Introduction of Other Therapeutic Substance into Peripheral Vein, Percutaneous Approach (ICD-10-PCS; 2021-05-11)
PROC: 3E033GC Introduction of Other Therapeutic Substance into Peripheral Vein, Percutaneous Approach (ICD-10-PCS; 2021-05-11)
DX: K92.2 Gastrointestinal hemorrhage, unspecified (principal)
CPT/HCPCS: 36415; 71046-TC-FY; 80053; 82140; 82272; 82550; 83735; 84484; 85027; 85045; 85610; 85730; 86850; 86900; 86901; 93005; 93010; 99285-25; C9803; U0003; U0005

== ENCOUNTER 2022-08-19 12:00 | Inpatient (IN) | payer OTHER ==
[2022-08-19 13:25] LABS: EOS % 0.2 % (0-4.5); HEMATOCRIT 8.4 % (35.4-49); LYMPH % 18.1 % (8-40); MCH 21.3 pg (25.7-33.7); MCHC 30.1 g/dl (32.0-35.9); MEAN CELL VOLUME 70.8 fl (80-96); MEAN PLT VOLUME 8.4 fl (7.5-11.1); MONO % 13.1 % (3.8-10.2); NEUT % 67.6 % (42.8-82.8); PLATELET COUNT 63 10^3/uL (134-434); RBC 1.19 M/mm3 (4.00-5.60); RDW 26.5 % (11.9-15.9)
[2022-08-19 13:28] LABS: HEMOGLOBIN 2.5 GM/dL (11.7-16.9)
[2022-08-19 13:31] LABS: INR 2.26 (0.83-1.09); PROTHROMBIN TIME (PATIENT) 26.2 SEC (9.7-13.0)
[2022-08-19] MEDS ORDERED: PANTOPRAZOLE SODIUM 80 MG in SODIUM CHLORIDE 100 ML IVPB ONE (13:33)
[2022-08-19 13:34] LABS: ACTIVATED PTT 35.8 SECONDS (25.2-36.5)
[2022-08-19] MEDS ORDERED: PANTOPRAZOLE SODIUM 40 MG VIAL ONE (13:54)
[2022-08-19 13:56] LABS: SODIUM 138 mmol/L (136-145)
[2022-08-19 13:58] LABS: CALCIUM 7.6 mg/dL (8.5-10.1); GLUCOSE,RANDOM 119 mg/dL (74-106)
[2022-08-19 13:59] LABS: ALBUMIN 1.8 g/dl (3.4-5.0); BLOOD UREA NITROGEN 18.4 mg/dL (7-18); CO2 23 mmol/L (21-32)
[2022-08-19 14:02] LABS: CREATININE 0.9 mg/dL (0.55-1.3); SGOT/AST 38 U/L (15-37)
[2022-08-19 14:03] LABS: BILIRUBIN,TOTAL 2.2 mg/dL (0.2-1); TOT PROT 6.7 g/dl (6.4-8.2)
[2022-08-19 14:05] LABS: ALK PHOS 138 U/L (45-117); ANION GAP 11 MMOL/L (8-16); CHLORIDE 104 mmol/L (98-107); SGPT/ALT 20 U/L (13-61)
[2022-08-19 14:07] LABS: ANISOCYTOSIS 3+; MACROCYTOSIS 0; ROULEAU 1+
[2022-08-19 15:07] LABS: EPI CELLS 31 /uL (0-25.1); HYALINE CASTS 7 /uL (0-3.1); URINE APPEARANCE CLEAR; URINE BACTERIA 11 /uL (0-1359); URINE BILIRUBIN 1+ (NEGATIVE); URINE COLOR DK YELLOW; URINE GLUCOSE (UA) NEGATIVE (NEGATIVE); URINE KETONE TRACE (NEGATIVE); URINE LEUK ESTERASE NEGATIVE (NEGATIVE); URINE NITRITE NEGATIVE (NEGATIVE); URINE PROTEIN 3+ (NEGATIVE); URINE RBC 10 /uL (0-23.9); URINE WBC 18 /uL (0-25.8)
[2022-08-19 15:45] LABS: N-TERMINAL BNP 783.8 pg/ml (5-125)
[2022-08-19] MEDS ORDERED: FUROSEMIDE 40 MG/4 ML INJECTABLE VIAL IVPUSH ONE (21:27)
[2022-08-19] MEDS ORDERED: THIAMINE HCL 200 MG/2 ML VIAL IVPB SCH (21:30)
[2022-08-19] MEDS ORDERED: PANTOPRAZOLE 40 MG TABLET PO SCH (22:00)
[2022-08-19] MEDS ORDERED: LACTULOSE 20 GM/30 ML UDC (FOR ORAL USE ONLY) PO SCH (22:00)
[2022-08-20] MEDS ORDERED: OCTREOTIDE ACETATE 50 MCG/1 ML - 1 ML VIAL IVPUSH ONE (01:58)
[2022-08-20] MEDS ORDERED: OCTREOTIDE ACETATE 200 MCG, OCTREOTIDE ACETATE 1,000 MCG in DEXTROSE 5%-WATER - 496 ML IVPB SCH (02:00)
[2022-08-20] MEDS ORDERED: PHYTONADIONE 10 MG/1 ML AMP SQ ONE (02:15)
[2022-08-20 02:59] LABS: HEMATOCRIT 14.3 % (35.4-49); MCH 25.5 pg (25.7-33.7); MCHC 33.4 g/dl (32.0-35.9); MEAN CELL VOLUME 76.3 fl (80-96); MEAN PLT VOLUME 8.3 fl (7.5-11.1); PLATELET COUNT 59 10^3/uL (134-434); RBC 1.87 M/mm3 (4.00-5.60); RDW 24.2 % (11.9-15.9); WHITE BLOOD COUNT 5.9 K/mm3 (4.0-10.0)
[2022-08-20 03:06] LABS: HEMOGLOBIN 4.8 GM/dL (11.7-16.9)
[2022-08-20 03:12] LABS: INR 2.03 (0.83-1.09); PROTHROMBIN TIME (PATIENT) 23.5 SEC (9.7-13.0)
[2022-08-20 03:22] LABS: ALBUMIN 1.8 g/dl (3.4-5.0); CALCIUM 7.3 mg/dL (8.5-10.1)
[2022-08-20 03:23] LABS: BLOOD UREA NITROGEN 17.8 mg/dL (7-18); MAGNESIUM 1.4 mg/dL (1.8-2.4)
[2022-08-20 03:25] LABS: CREATININE 0.8 mg/dL (0.55-1.3)
[2022-08-20 03:27] LABS: BILIRUBIN,TOTAL 3.7 mg/dL (0.2-1); TOT PROT 6.5 g/dl (6.4-8.2)
[2022-08-20] MEDS ORDERED: PANTOPRAZOLE SODIUM 40 MG VIAL IVPUSH SCH (06:00)
[2022-08-20] MEDS ORDERED: ONDANSETRON 4 MG/2 ML VIAL IVPUSH PRN (06:42)
[2022-08-20] MEDS ORDERED: MAGNESIUM SULF 50% (8.12 MEQ/2 ML-1 GM VIAL) IVPB ONE (07:45)
[2022-08-20] MEDS ORDERED: PANTOPRAZOLE SODIUM 80 MG in SODIUM CHLORIDE 100 ML IVPB SCH (09:15)
[2022-08-20] MEDS ORDERED: PHYTONADIONE 10 MG/1 ML AMP IVPB ONE (09:31)
[2022-08-20] MEDS: OCTREOTIDE ACETATE 200 MCG, OCTREOTIDE ACETATE 1,000 MCG in DEXTROSE 5%-WATER - 496 ML IVPB SCH (09:38)
[2022-08-20] MEDS: KCL 10 MEQ IVPB 10 MEQ/100 ML INFUS.BAG IVPB SCH ×3 (10:56→15:03)
[2022-08-20] MEDS: LACTULOSE 20 GM/30 ML UDC (FOR ORAL USE ONLY) PO SCH ×2 (11:09→21:27)
[2022-08-20] MEDS: MUPIROCIN 2% TOPICAL OINTMENT FOR DECOLONIZATION NS SCH ×2 (11:10→21:30)
[2022-08-20] MEDS: CEFTRIAXONE 1 GM in DEXTROSE 5%-WATER - 50 ML IVPB SCH (11:22)
[2022-08-20] MEDS: THIAMINE HCL 200 MG/2 ML VIAL IVPB SCH (12:09)
[2022-08-20 13:47] LABS: BASO % 0.8 % (0-2.0); EOS % 1.2 % (0-4.5); HEMATOCRIT 18.1 % (35.4-49); LYMPH % 12.9 % (8-40); MCH 26.3 pg (25.7-33.7); MCHC 33.4 g/dl (32.0-35.9); MEAN CELL VOLUME 78.8 fl (80-96); MEAN PLT VOLUME 8.2 fl (7.5-11.1); MONO % 10.5 % (3.8-10.2); NEUT % 74.6 % (42.8-82.8); PLATELET COUNT 72 10^3/uL (134-434); RDW 21.7 % (11.9-15.9); WHITE BLOOD COUNT 5.8 K/mm3 (4.0-10.0)
[2022-08-20 14:12] LABS: CALCIUM 7.5 mg/dL (8.5-10.1)
[2022-08-20 14:13] LABS: BLOOD UREA NITROGEN 16.6 mg/dL (7-18)
[2022-08-20 14:16] LABS: CREATININE 0.9 mg/dL (0.55-1.3)
[2022-08-20] MEDS: PANTOPRAZOLE SODIUM 160 MG in SODIUM CHLORIDE 290 ML IVPB SCH (16:42)
[2022-08-20] MEDS: SODIUM CHLORIDE 1,000 ML IV SCH (19:54)
[2022-08-20 21:24] LABS: HEMATOCRIT 21.6 % (35.4-49); HEMOGLOBIN 7.2 GM/dL (11.7-16.9); MCH 26.8 pg (25.7-33.7); MCHC 33.4 g/dl (32.0-35.9); MEAN CELL VOLUME 80.4 fl (80-96); MEAN PLT VOLUME 8.3 fl (7.5-11.1); PLATELET COUNT 72 10^3/uL (134-434); RBC 2.69 M/mm3 (4.00-5.60); RDW 21.4 % (11.9-15.9); WHITE BLOOD COUNT 6.5 K/mm3 (4.0-10.0)
[2022-08-20] MEDS: CHLORHEXIDINE GLUCONATE 4% CLEANSER FOR DECOLONIZATION TP SCH (21:37)
[2022-08-21] MEDS: OCTREOTIDE ACETATE 200 MCG, OCTREOTIDE ACETATE 1,000 MCG in DEXTROSE 5%-WATER - 496 ML IVPB SCH (05:36)
[2022-08-21 07:45] LABS: HEMATOCRIT 20.9 % (35.4-49); MCH 26.4 pg (25.7-33.7); MCHC 32.8 g/dl (32.0-35.9); MEAN CELL VOLUME 80.4 fl (80-96); MEAN PLT VOLUME 8.3 fl (7.5-11.1); PLATELET COUNT 82 10^3/uL (134-434); RDW 21.6 % (11.9-15.9)
[2022-08-21 07:47] LABS: INR 1.95 (0.83-1.09); PROTHROMBIN TIME (PATIENT) 22.6 SEC (9.7-13.0)
[2022-08-21 07:49] LABS: HEMOGLOBIN 6.9 GM/dL (11.7-16.9)
[2022-08-21 08:10] LABS: BLOOD UREA NITROGEN 12.4 mg/dL (7-18); CALCIUM 7.3 mg/dL (8.5-10.1)
[2022-08-21 08:11] LABS: ALBUMIN 1.8 g/dl (3.4-5.0); MAGNESIUM 1.7 mg/dL (1.8-2.4)
[2022-08-21 08:13] LABS: BILIRUBIN,DIRECT 3.3 mg/dL (0.0-0.2); CREATININE 0.6 mg/dL (0.55-1.3)
[2022-08-21 08:14] LABS: PHOSPHOROUS 3.7 mg/dL (2.5-4.9)
[2022-08-21 08:15] LABS: BILIRUBIN,TOTAL 5.1 mg/dL (0.2-1); TOT PROT 6.5 g/dl (6.4-8.2)
[2022-08-21] MEDS: MUPIROCIN 2% TOPICAL OINTMENT FOR DECOLONIZATION NS SCH ×2 (09:32→21:24)
[2022-08-21] MEDS: LACTULOSE 20 GM/30 ML UDC (FOR ORAL USE ONLY) PO SCH ×2 (09:32→21:24)
[2022-08-21] MEDS: THIAMINE HCL 200 MG/2 ML VIAL IVPB SCH (09:36)
[2022-08-21] MEDS ORDERED: MAGNESIUM SULF 50% (8.12 MEQ/2 ML-1 GM VIAL) IVPB ONE (09:45)
[2022-08-21 09:52] LABS: ANISOCYTOSIS 1+; MACROCYTOSIS 0; TARGET CELLS 1+
[2022-08-21] MEDS ORDERED: DICLOFENAC SODIUM 0.1% OPHTHALMIC 2.5ML BOTTLE OP SCH (10:00)
[2022-08-21] MEDS ORDERED: PHYTONADIONE 10 MG/1 ML AMP SQ ONE (12:18)
[2022-08-21] MEDS: CEFTRIAXONE 1 GM in DEXTROSE 5%-WATER - 50 ML IVPB SCH (12:20)
[2022-08-21] MEDS ORDERED: ARTIFICIAL TEARS (POLYVINYL ALCOHOL) OPTH DROPS OU PRN (13:37)
[2022-08-21] MEDS: PANTOPRAZOLE SODIUM 160 MG in SODIUM CHLORIDE 290 ML IVPB SCH (15:46)
[2022-08-21] MEDS: KCL 10 MEQ IVPB 10 MEQ/100 ML INFUS.BAG IVPB SCH ×3 (18:36→21:24)
[2022-08-21] MEDS: SODIUM CHLORIDE 1,000 ML IV SCH (20:08)
[2022-08-21] MEDS: CHLORHEXIDINE GLUCONATE 4% CLEANSER FOR DECOLONIZATION TP SCH (21:24)
[2022-08-21 21:39] LABS: HEMATOCRIT 25.1 % (35.4-49); HEMOGLOBIN 8.1 GM/dL (11.7-16.9); MCH 26.8 pg (25.7-33.7); MCHC 32.3 g/dl (32.0-35.9); MEAN CELL VOLUME 82.9 fl (80-96); MEAN PLT VOLUME 8.3 fl (7.5-11.1); PLATELET COUNT 78 10^3/uL (134-434); RBC 3.03 M/mm3 (4.00-5.60); RDW 21.2 % (11.9-15.9); WHITE BLOOD COUNT 5.7 K/mm3 (4.0-10.0)
[2022-08-21 21:55] LABS: ALBUMIN 1.7 g/dl (3.4-5.0); CALCIUM 7.1 mg/dL (8.5-10.1)
[2022-08-21 21:56] LABS: BLOOD UREA NITROGEN 9.1 mg/dL (7-18); MAGNESIUM 1.9 mg/dL (1.8-2.4)
[2022-08-21 21:58] LABS: CREATININE 0.6 mg/dL (0.55-1.3)
[2022-08-21 21:59] LABS: PHOSPHOROUS 3.3 mg/dL (2.5-4.9)
[2022-08-21 22:00] LABS: BILIRUBIN,TOTAL 3.7 mg/dL (0.2-1); TOT PROT 6.3 g/dl (6.4-8.2)
[2022-08-22] MEDS: PANTOPRAZOLE SODIUM 160 MG in SODIUM CHLORIDE 290 ML IVPB SCH (03:08)
[2022-08-22] MEDS: OCTREOTIDE ACETATE 200 MCG, OCTREOTIDE ACETATE 1,000 MCG in DEXTROSE 5%-WATER - 496 ML IVPB SCH (06:31)
[2022-08-22 07:27] LABS: HEMATOCRIT 24.2 % (35.4-49); HEMOGLOBIN 7.9 GM/dL (11.7-16.9); MCH 26.8 pg (25.7-33.7); MCHC 32.5 g/dl (32.0-35.9); MEAN CELL VOLUME 82.3 fl (80-96); PLATELET COUNT 88 10^3/uL (134-434); RBC 2.93 M/mm3 (4.00-5.60); RDW 21.3 % (11.9-15.9); WHITE BLOOD COUNT 5.7 K/mm3 (4.0-10.0)
[2022-08-22 07:33] LABS: INR 2.08 (0.83-1.09); PROTHROMBIN TIME (PATIENT) 24.1 SEC (9.7-13.0)
[2022-08-22 07:39] LABS: ALBUMIN 1.6 g/dl (3.4-5.0); BLOOD UREA NITROGEN 7.9 mg/dL (7-18); MAGNESIUM 1.6 mg/dL (1.8-2.4)
[2022-08-22 07:41] LABS: CREATININE 0.6 mg/dL (0.55-1.3)
[2022-08-22 07:43] LABS: BILIRUBIN,TOTAL 3.4 mg/dL (0.2-1); TOT PROT 6.2 g/dl (6.4-8.2)
[2022-08-22] MEDS: CEFTRIAXONE 1 GM in DEXTROSE 5%-WATER - 50 ML IVPB SCH (09:24)
[2022-08-22] MEDS: THIAMINE HCL 200 MG/2 ML VIAL IVPB SCH (09:24)
[2022-08-22] MEDS: MUPIROCIN 2% TOPICAL OINTMENT FOR DECOLONIZATION NS SCH ×2 (09:24→21:18)
[2022-08-22] MEDS: LACTULOSE 20 GM/30 ML UDC (FOR ORAL USE ONLY) PO SCH ×3 (09:24→22:00)
[2022-08-22] MEDS ORDERED: PANTOPRAZOLE SODIUM 40 MG VIAL IVPUSH SCH (10:00)
[2022-08-22 17:09] LABS: HEMATOCRIT 26.2 % (35.4-49); HEMOGLOBIN 8.4 GM/dL (11.7-16.9); MCHC 32.2 g/dl (32.0-35.9); MEAN PLT VOLUME 7.5 fl (7.5-11.1); PLATELET COUNT 103 10^3/uL (134-434); RBC 3.12 M/mm3 (4.00-5.60); RDW 21.9 % (11.9-15.9); WHITE BLOOD COUNT 6.3 K/mm3 (4.0-10.0)
[2022-08-22] MEDS: CHLORHEXIDINE GLUCONATE 4% CLEANSER FOR DECOLONIZATION TP SCH (21:18)
[2022-08-22] MEDS ORDERED: ARTIFICIAL TEARS (POLYVINYL ALCOHOL) OPTH DROPS OU PRN (21:35)
[2022-08-22] MEDS ORDERED: OCTREOTIDE ACETATE 200 MCG, OCTREOTIDE ACETATE 1,000 MCG in DEXTROSE 5%-WATER - 496 ML IVPB SCH (21:35)
[2022-08-23] MEDS: LACTULOSE 20 GM/30 ML UDC (FOR ORAL USE ONLY) PO SCH ×2 (09:07→21:19)
[2022-08-23 09:28] LABS: HEMATOCRIT 23.3 % (35.4-49); HEMOGLOBIN 7.5 GM/dL (11.7-16.9); MCH 27.6 pg (25.7-33.7); MCHC 32.4 g/dl (32.0-35.9); MEAN PLT VOLUME 7.1 fl (7.5-11.1); PLATELET COUNT 102 10^3/uL (134-434); RBC 2.74 M/mm3 (4.00-5.60); RDW 21.8 % (11.9-15.9); WHITE BLOOD COUNT 5.9 K/mm3 (4.0-10.0)
[2022-08-23 09:31] LABS: INR 2.24 (0.83-1.09)
[2022-08-23] MEDS ORDERED: PHYTONADIONE 10 MG/1 ML AMP SQ ONE (09:45)
[2022-08-23 09:50] LABS: CALCIUM 7.1 mg/dL (8.5-10.1)
[2022-08-23 09:52] LABS: ALBUMIN 1.7 g/dl (3.4-5.0); BLOOD UREA NITROGEN 4.6 mg/dL (7-18); MAGNESIUM 1.1 mg/dL (1.8-2.4)
[2022-08-23 09:53] LABS: CREATININE 0.7 mg/dL (0.55-1.3); PHOSPHOROUS 2.7 mg/dL (2.5-4.9)
[2022-08-23 09:55] LABS: TOT PROT 6.2 g/dl (6.4-8.2)
[2022-08-23] MEDS: PANTOPRAZOLE SODIUM 40 MG VIAL IVPUSH SCH (11:23)
[2022-08-23] MEDS: THIAMINE HCL 200 MG/2 ML VIAL IVPB SCH (11:23)
[2022-08-23] MEDS: CEFTRIAXONE 1 GM in DEXTROSE 5%-WATER - 50 ML IVPB SCH (11:23)
[2022-08-23] MEDS: OCTREOTIDE ACETATE 200 MCG, OCTREOTIDE ACETATE 1,000 MCG in DEXTROSE 5%-WATER - 496 ML IVPB SCH (12:06)
[2022-08-23 14:26] LABS: HEMOGLOBIN 7.8 GM/dL (11.7-16.9); MCH 27.3 pg (25.7-33.7); MCHC 32.4 g/dl (32.0-35.9); MEAN CELL VOLUME 84.1 fl (80-96); MEAN PLT VOLUME 6.9 fl (7.5-11.1); PLATELET COUNT 106 10^3/uL (134-434); RBC 2.86 M/mm3 (4.00-5.60); RDW 22.2 % (11.9-15.9); WHITE BLOOD COUNT 5.7 K/mm3 (4.0-10.0)
[2022-08-24 08:26] LABS: BASO % 1.7 % (0-2.0); EOS % 3.3 % (0-4.5); HEMATOCRIT 22.9 % (35.4-49); HEMOGLOBIN 7.4 GM/dL (11.7-16.9); LYMPH % 24.7 % (8-40); MCH 27.2 pg (25.7-33.7); MCHC 32.5 g/dl (32.0-35.9); MEAN CELL VOLUME 83.5 fl (80-96); MONO % 10.2 % (3.8-10.2); NEUT % 60.1 % (42.8-82.8); PLATELET COUNT 106 10^3/uL (134-434); RBC 2.74 M/mm3 (4.00-5.60); RDW 23.4 % (11.9-15.9); WHITE BLOOD COUNT 5.8 K/mm3 (4.0-10.0)
[2022-08-24 08:28] LABS: INR 2.4 (0.83-1.09); PROTHROMBIN TIME (PATIENT) 27.8 SEC (9.7-13.0)
[2022-08-24 09:30] LABS: ANISOCYTOSIS 2+; MACROCYTOSIS 1+; OVALOCYTE 1+
[2022-08-24] MEDS: CEFTRIAXONE 1 GM in DEXTROSE 5%-WATER - 50 ML IVPB SCH (10:04)
[2022-08-24] MEDS: LACTULOSE 20 GM/30 ML UDC (FOR ORAL USE ONLY) PO SCH ×2 (10:04→21:55)
[2022-08-24] MEDS: PANTOPRAZOLE SODIUM 40 MG VIAL IVPUSH SCH (10:04)
[2022-08-24] MEDS: OCTREOTIDE ACETATE 200 MCG, OCTREOTIDE ACETATE 1,000 MCG in DEXTROSE 5%-WATER - 496 ML IVPB SCH (10:05)
[2022-08-24] MEDS ORDERED: PHYTONADIONE 10 MG/1 ML AMP SQ ONE (10:06)
[2022-08-24] MEDS: THIAMINE HCL 200 MG/2 ML VIAL IVPB SCH (10:09)
[2022-08-24] MEDS ORDERED: BISACODYL 5 MG TABLET.DR (FP) PO ONE (16:00)
[2022-08-24] MEDS ORDERED: PEG 3350/NA SULF BICARB CL/KCL 4000 ML SOLN.RECON PO ONE (17:00)
[2022-08-25 09:06] LABS: BASO % 1.8 % (0-2.0); EOS % 2.8 % (0-4.5); HEMATOCRIT 22.2 % (35.4-49); HEMOGLOBIN 7.2 GM/dL (11.7-16.9); LYMPH % 23.4 % (8-40); MCH 27.1 pg (25.7-33.7); MCHC 32.3 g/dl (32.0-35.9); MEAN PLT VOLUME 8.2 fl (7.5-11.1); MONO % 10.7 % (3.8-10.2); NEUT % 61.3 % (42.8-82.8); PLATELET COUNT 108 10^3/uL (134-434); RBC 2.65 M/mm3 (4.00-5.60); RDW 24.1 % (11.9-15.9); WHITE BLOOD COUNT 5.4 K/mm3 (4.0-10.0)
[2022-08-25 09:15] LABS: INR 2.89 (0.83-1.09); PROTHROMBIN TIME (PATIENT) 33.6 SEC (9.7-13.0)
[2022-08-25 09:21] LABS: CHLORIDE 106 mmol/L (98-107); SODIUM 139 mmol/L (136-145)
[2022-08-25 09:24] LABS: ALBUMIN 1.6 g/dl (3.4-5.0); ANION GAP 8 MMOL/L (8-16); CO2 26 mmol/L (21-32); GLUCOSE,RANDOM 75 mg/dL (74-106); MAGNESIUM 1.2 mg/dL (1.8-2.4)
[2022-08-25 09:27] LABS: CREATININE 0.5 mg/dL (0.55-1.3); SGOT/AST 30 U/L (15-37); SGPT/ALT 12 U/L (13-61)
[2022-08-25 09:29] LABS: BILIRUBIN,TOTAL 3.6 mg/dL (0.2-1)
[2022-08-25 09:30] LABS: ALK PHOS 94 U/L (45-117)
[2022-08-25 09:37] LABS: BLOOD UREA NITROGEN 2.2 mg/dL (7-18); CALCIUM 6.7 mg/dL (8.5-10.1)
[2022-08-25] MEDS: CEFTRIAXONE 1 GM in DEXTROSE 5%-WATER - 50 ML IVPB SCH (10:05)
[2022-08-25] MEDS: PANTOPRAZOLE 40 MG TABLET PO SCH (10:06)
[2022-08-25] MEDS: THIAMINE HCL 200 MG/2 ML VIAL IVPB SCH (10:06)
[2022-08-25] MEDS: LACTULOSE 20 GM/30 ML UDC (FOR ORAL USE ONLY) PO SCH ×2 (10:06→21:47)
[2022-08-25 14:26] VITALS: BMI 30.5
[2022-08-25] MEDS ORDERED: LIDOCAINE HCL 2% JELLY 10 ML CARTRIDGE ONE (15:39)
[2022-08-25] MEDS ORDERED: ACETAMINOPHEN INJECTION 100 ML IVPB ONE (15:44)
[2022-08-25] MEDS ORDERED: ACETAMINOPHEN 1000 MG/100 ML BAG IVPB PRN (16:02)
[2022-08-25] MEDS ORDERED: LIDOCAINE HCL 2% JELLY 10 ML CARTRIDGE RC PRN (16:09)
[2022-08-25] MEDS: IBUPROFEN 400 MG TABLET (FP) PO SCH (16:42)
[2022-08-26] MEDS: IBUPROFEN 400 MG TABLET (FP) PO SCH ×3 (01:11→15:35)
[2022-08-26] MEDS: LACTULOSE 20 GM/30 ML UDC (FOR ORAL USE ONLY) PO SCH ×2 (09:10→21:41)
[2022-08-26] MEDS: CEFTRIAXONE 1 GM in DEXTROSE 5%-WATER - 50 ML IVPB SCH (09:10)
[2022-08-26] MEDS: PANTOPRAZOLE 40 MG TABLET PO SCH (09:11)
[2022-08-26] MEDS: THIAMINE HCL 200 MG/2 ML VIAL IVPB SCH (09:12)
[2022-08-26 10:31] LABS: HEMATOCRIT 22.6 % (35.4-49); HEMOGLOBIN 7.3 GM/dL (11.7-16.9); LYMPH % 14.6 % (8-40); MCH 27.1 pg (25.7-33.7); MCHC 32.1 g/dl (32.0-35.9); MEAN CELL VOLUME 84.2 fl (80-96); MEAN PLT VOLUME 8.3 fl (7.5-11.1); MONO % 6.4 % (3.8-10.2); PLATELET COUNT 102 10^3/uL (134-434); RBC 2.69 M/mm3 (4.00-5.60); RDW 24.8 % (11.9-15.9); WHITE BLOOD COUNT 6.4 K/mm3 (4.0-10.0)
[2022-08-26 10:39] LABS: INR 2.43 (0.83-1.09); PROTHROMBIN TIME (PATIENT) 28.2 SEC (9.7-13.0)
[2022-08-26 11:22] LABS: BILIRUBIN,TOTAL 4.2 mg/dL (0.2-1)
[2022-08-26 11:23] LABS: CREATININE 0.5 mg/dL (0.55-1.3)
[2022-08-26 11:25] LABS: BLOOD UREA NITROGEN 4.9 mg/dL (7-18); TOT PROT 6.3 g/dl (6.4-8.2)
[2022-08-26 11:27] LABS: CALCIUM 7.2 mg/dL (8.5-10.1); MAGNESIUM 1.4 mg/dL (1.8-2.4)
[2022-08-26 11:31] LABS: ALBUMIN 1.7 g/dl (3.4-5.0)
[2022-08-26] MEDS ORDERED: MAGNESIUM OXIDE 400 MG TABLET (FP) PO ONE (13:00)
[2022-08-26] MEDS: MAGNESIUM OXIDE 400 MG TABLET (FP) PO SCH (21:41)
[2022-08-27] MEDS: IBUPROFEN 400 MG TABLET (FP) PO SCH ×3 (01:33→16:17)
[2022-08-27 08:55] LABS: BASO % 1.5 % (0-2.0); EOS % 2.3 % (0-4.5); HEMATOCRIT 19.9 % (35.4-49); LYMPH % 20.8 % (8-40); MCH 27.3 pg (25.7-33.7); MCHC 32.4 g/dl (32.0-35.9); MEAN CELL VOLUME 84.2 fl (80-96); MEAN PLT VOLUME 8.1 fl (7.5-11.1); MONO % 11.2 % (3.8-10.2); NEUT % 64.2 % (42.8-82.8); PLATELET COUNT 92 10^3/uL (134-434); RBC 2.36 M/mm3 (4.00-5.60); RDW 24.4 % (11.9-15.9); WHITE BLOOD COUNT 4.7 K/mm3 (4.0-10.0)
[2022-08-27] MEDS: CEFTRIAXONE 1 GM in DEXTROSE 5%-WATER - 50 ML IVPB SCH (09:12)
[2022-08-27] MEDS: POLYETHYLENE GLYCOL (HEALTHYLAX) 3350 17 GM PACKET PO SCH (09:12)
[2022-08-27] MEDS: LACTULOSE 20 GM/30 ML UDC (FOR ORAL USE ONLY) PO SCH ×2 (09:13→21:20)
[2022-08-27 09:14] LABS: BLOOD UREA NITROGEN 5.4 mg/dL (7-18); MAGNESIUM 1.2 mg/dL (1.8-2.4)
[2022-08-27] MEDS: MAGNESIUM OXIDE 400 MG TABLET (FP) PO SCH ×2 (09:14→21:20)
[2022-08-27] MEDS: PANTOPRAZOLE 40 MG TABLET PO SCH (09:14)
[2022-08-27] MEDS ORDERED: MAGNESIUM OXIDE 400 MG TABLET (FP) PO ONE (09:16)
[2022-08-27 09:17] LABS: ALBUMIN 1.6 g/dl (3.4-5.0); CREATININE 0.5 mg/dL (0.55-1.3)
[2022-08-27 09:18] LABS: BILIRUBIN,TOTAL 5.8 mg/dL (0.2-1); TOT PROT 5.8 g/dl (6.4-8.2)
[2022-08-27 09:39] LABS: HEMOGLOBIN 6.4 GM/dL (11.7-16.9)
[2022-08-27] MEDS ORDERED: ACETAMINOPHEN 325 MG TABLET (FP) PO PRN (09:53)
[2022-08-27] MEDS ORDERED: FUROSEMIDE 20 MG TABLET (FP) PO ONE (11:00)
[2022-08-27] MEDS: THIAMINE HCL 200 MG/2 ML VIAL IVPB SCH (11:15)
[2022-08-28] MEDS: IBUPROFEN 400 MG TABLET (FP) PO SCH ×2 (00:30→09:25)
[2022-08-28] MEDS: POLYETHYLENE GLYCOL (HEALTHYLAX) 3350 17 GM PACKET PO SCH (09:27)
[2022-08-28] MEDS: LACTULOSE 20 GM/30 ML UDC (FOR ORAL USE ONLY) PO SCH ×2 (09:27→21:16)
[2022-08-28] MEDS: MAGNESIUM OXIDE 400 MG TABLET (FP) PO SCH ×2 (09:28→21:17)
[2022-08-28] MEDS: PANTOPRAZOLE 40 MG TABLET PO SCH (09:28)
[2022-08-28] MEDS: CEFTRIAXONE 1 GM in DEXTROSE 5%-WATER - 50 ML IVPB SCH (10:37)
[2022-08-28] MEDS: FUROSEMIDE 40 MG TABLET (FP) PO SCH (12:38)
[2022-08-28] MEDS: SPIRONOLACTONE 25 MG TABLET PO SCH (12:39)
[2022-08-28] MEDS: THIAMINE HCL 200 MG/2 ML VIAL IVPB SCH (12:40)
[2022-08-28 16:48] LABS: EOS % 1.9 % (0-4.5); HEMATOCRIT 26.5 % (35.4-49); HEMOGLOBIN 8.6 GM/dL (11.7-16.9); LYMPH % 14.1 % (8-40); MCH 27.4 pg (25.7-33.7); MCHC 32.7 g/dl (32.0-35.9); MEAN CELL VOLUME 83.9 fl (80-96); MEAN PLT VOLUME 7.8 fl (7.5-11.1); MONO % 10.2 % (3.8-10.2); NEUT % 71.8 % (42.8-82.8); PLATELET COUNT 114 10^3/uL (134-434); RBC 3.15 M/mm3 (4.00-5.60); RDW 21.7 % (11.9-15.9)
[2022-08-28 16:53] LABS: INR 2.64 (0.83-1.09); PROTHROMBIN TIME (PATIENT) 30.7 SEC (9.7-13.0)
[2022-08-28 17:18] LABS: CALCIUM 7.2 mg/dL (8.5-10.1)
[2022-08-28 17:19] LABS: ALBUMIN 1.6 g/dl (3.4-5.0); BLOOD UREA NITROGEN 4.4 mg/dL (7-18); MAGNESIUM 1.4 mg/dL (1.8-2.4)
[2022-08-28 17:22] LABS: CREATININE 0.5 mg/dL (0.55-1.3)
[2022-08-28 17:23] LABS: BILIRUBIN,TOTAL 10.6 mg/dL (0.2-1)
[2022-08-28 17:24] LABS: TOT PROT 6.2 g/dl (6.4-8.2)
[2022-08-29 09:55] LABS: BASO % 1.9 % (0-2.0); EOS % 2.1 % (0-4.5); HEMATOCRIT 27.2 % (35.4-49); HEMOGLOBIN 8.9 GM/dL (11.7-16.9); INR 2.46 (0.83-1.09); LYMPH % 13.7 % (8-40); MCH 27.7 pg (25.7-33.7); MCHC 32.8 g/dl (32.0-35.9); MEAN CELL VOLUME 84.5 fl (80-96); MEAN PLT VOLUME 8.5 fl (7.5-11.1); MONO % 10.2 % (3.8-10.2); NEUT % 72.1 % (42.8-82.8); PLATELET COUNT 130 10^3/uL (134-434); PROTHROMBIN TIME (PATIENT) 28.6 SEC (9.7-13.0); RBC 3.22 M/mm3 (4.00-5.60); RDW 22.2 % (11.9-15.9); WHITE BLOOD COUNT 6.2 K/mm3 (4.0-10.0)
[2022-08-29] MEDS: CEFTRIAXONE 1 GM in DEXTROSE 5%-WATER - 50 ML IVPB SCH (10:00)
[2022-08-29] MEDS: LACTULOSE 20 GM/30 ML UDC (FOR ORAL USE ONLY) PO SCH ×2 (10:01→21:12)
[2022-08-29] MEDS: POLYETHYLENE GLYCOL (HEALTHYLAX) 3350 17 GM PACKET PO SCH (10:01)
[2022-08-29] MEDS: MAGNESIUM OXIDE 400 MG TABLET (FP) PO SCH ×2 (10:02→21:12)
[2022-08-29] MEDS: SPIRONOLACTONE 25 MG TABLET PO SCH (10:02)
[2022-08-29] MEDS: FUROSEMIDE 40 MG TABLET (FP) PO SCH (10:02)
[2022-08-29] MEDS: THIAMINE HCL 200 MG/2 ML VIAL IVPB SCH (10:02)
[2022-08-29] MEDS: PANTOPRAZOLE 40 MG TABLET PO SCH (10:02)
[2022-08-29 10:19] LABS: ALBUMIN 1.6 g/dl (3.4-5.0); BLOOD UREA NITROGEN 5.6 mg/dL (7-18); CALCIUM 7.2 mg/dL (8.5-10.1); MAGNESIUM 1.4 mg/dL (1.8-2.4)
[2022-08-29 10:22] LABS: CREATININE 0.5 mg/dL (0.55-1.3)
[2022-08-29 10:24] LABS: BILIRUBIN,TOTAL 10.3 mg/dL (0.2-1); TOT PROT 6.8 g/dl (6.4-8.2)
[2022-08-29] MEDS ORDERED: MAGNESIUM OXIDE 400 MG TABLET (FP) PO ONE (11:00)
[2022-08-30] MEDS: CEFTRIAXONE 1 GM in DEXTROSE 5%-WATER - 50 ML IVPB SCH (09:45)
[2022-08-30] MEDS: POLYETHYLENE GLYCOL (HEALTHYLAX) 3350 17 GM PACKET PO SCH (09:45)
[2022-08-30] MEDS: LACTULOSE 20 GM/30 ML UDC (FOR ORAL USE ONLY) PO SCH ×2 (09:46→21:33)
[2022-08-30] MEDS: MAGNESIUM OXIDE 400 MG TABLET (FP) PO SCH ×2 (09:47→21:33)
[2022-08-30] MEDS: PANTOPRAZOLE 40 MG TABLET PO SCH (09:47)
[2022-08-30] MEDS: SPIRONOLACTONE 25 MG TABLET PO SCH (09:47)
[2022-08-30] MEDS: THIAMINE HCL 200 MG/2 ML VIAL IVPB SCH (09:47)
[2022-08-31] MEDS: SPIRONOLACTONE 25 MG TABLET PO SCH (09:55)
[2022-08-31] MEDS: POLYETHYLENE GLYCOL (HEALTHYLAX) 3350 17 GM PACKET PO SCH ×2 (09:55→09:56)
[2022-08-31] MEDS: LACTULOSE 20 GM/30 ML UDC (FOR ORAL USE ONLY) PO SCH (09:55)
[2022-08-31] MEDS: MAGNESIUM OXIDE 400 MG TABLET (FP) PO SCH ×2 (09:55→21:33)
[2022-08-31] MEDS: CEFTRIAXONE 1 GM in DEXTROSE 5%-WATER - 50 ML IVPB SCH (09:56)
[2022-08-31] MEDS: PANTOPRAZOLE 40 MG TABLET PO SCH (09:56)
[2022-08-31] MEDS: THIAMINE HCL 200 MG/2 ML VIAL IVPB SCH (12:45)
[2022-08-31 14:31] LABS: EOS % 1.1 % (0-4.5); HEMATOCRIT 26.4 % (35.4-49); HEMOGLOBIN 8.6 GM/dL (11.7-16.9); LYMPH % 9.3 % (8-40); MCH 27.8 pg (25.7-33.7); MCHC 32.7 g/dl (32.0-35.9); MEAN CELL VOLUME 84.9 fl (80-96); MEAN PLT VOLUME 8.7 fl (7.5-11.1); MONO % 9.5 % (3.8-10.2); NEUT % 79.1 % (42.8-82.8); PLATELET COUNT 149 10^3/uL (134-434); RBC 3.11 M/mm3 (4.00-5.60); RDW 22.6 % (11.9-15.9); WHITE BLOOD COUNT 8.4 K/mm3 (4.0-10.0)
[2022-08-31 14:42] LABS: INR 2.55 (0.83-1.09); PROTHROMBIN TIME (PATIENT) 29.6 SEC (9.7-13.0)
[2022-08-31 15:04] LABS: CALCIUM 7.4 mg/dL (8.5-10.1)
[2022-08-31 15:05] LABS: ALBUMIN 1.6 g/dl (3.4-5.0); BLOOD UREA NITROGEN 5.6 mg/dL (7-18); MAGNESIUM 1.5 mg/dL (1.8-2.4)
[2022-08-31 15:08] LABS: CREATININE 0.6 mg/dL (0.55-1.3)
[2022-09-01] MEDS: THIAMINE HCL 200 MG/2 ML VIAL IVPB SCH (09:34)
[2022-09-01] MEDS ORDERED: LACTULOSE 20 GM/30 ML UDC (FOR ORAL USE ONLY) PO SCH (10:00)
[2022-09-01 13:03] LABS: BASO % 1.2 % (0-2.0); EOS % 1.5 % (0-4.5); HEMATOCRIT 23.8 % (35.4-49); HEMOGLOBIN 7.9 GM/dL (11.7-16.9); LYMPH % 10.3 % (8-40); MEAN CELL VOLUME 84.8 fl (80-96); MEAN PLT VOLUME 8.3 fl (7.5-11.1); MONO % 8.6 % (3.8-10.2); NEUT % 78.4 % (42.8-82.8); PLATELET COUNT 146 10^3/uL (134-434); RDW 23.4 % (11.9-15.9); WHITE BLOOD COUNT 7.4 K/mm3 (4.0-10.0)
[2022-09-01 13:11] LABS: INR 2.63 (0.83-1.09); PROTHROMBIN TIME (PATIENT) 30.6 SEC (9.7-13.0)
[2022-09-01 13:41] LABS: CALCIUM 7.2 mg/dL (8.5-10.1)
[2022-09-01 13:42] LABS: ALBUMIN 1.4 g/dl (3.4-5.0); MAGNESIUM 1.4 mg/dL (1.8-2.4)
[2022-09-01 13:45] LABS: CREATININE 0.5 mg/dL (0.55-1.3); PHOSPHOROUS 2.2 mg/dL (2.5-4.9)
[2022-09-01 13:47] LABS: BILIRUBIN,TOTAL 8.4 mg/dL (0.2-1); TOT PROT 6.5 g/dl (6.4-8.2)
[2022-09-01] MEDS: POLYETHYLENE GLYCOL (HEALTHYLAX) 3350 17 GM PACKET PO SCH (14:14)
[2022-09-01] MEDS: SPIRONOLACTONE 25 MG TABLET PO SCH (14:14)
[2022-09-01] MEDS: MAGNESIUM OXIDE 400 MG TABLET (FP) PO SCH ×2 (14:14→22:33)
[2022-09-01] MEDS: PANTOPRAZOLE 40 MG TABLET PO SCH (14:14)
[2022-09-01] MEDS ORDERED: MAGNESIUM SULF 50% (8.12 MEQ/2 ML-1 GM VIAL) IVPB ONE (14:44)
[2022-09-01] MEDS ORDERED: PIPERACILLIN/TAZOB 3.375 GM 3.375 GM in DEXTROSE 5%-WATER - 50 ML IVPB SCH (18:00)
[2022-09-01] MEDS ORDERED: NAPH,MB-DB/K PH,MBDB POWDER PACKET PO SCH (22:00)
[2022-09-02 01:52] VITALS: BP 112/63; PULSE 80; RESP 17; TEMP 98.5
== END 2022-09-02 02:13 | disposition short-term general hospital (02) | DRG 226 ==
LOC: JER 12:00 → JERBED 14:31 → J8W 20:58 → JICU 08-20 03:56 → J7W 08-22 21:47
PROVIDERS: ADMIT Internal Medicine; ATTEND Nurse Practitioner Acute Care
PROC: 06LY8CC Occlusion of Hemorrhoidal Plexus with Extraluminal Device, Via Natural or Artificial Opening Endoscopic (ICD-10-PCS; 2022-08-21)
PROC: 06L38CZ Occlusion of Esophageal Vein with Extraluminal Device, Via Natural or Artificial Opening Endoscopic (ICD-10-PCS; principal; 2022-08-21 10:41)
PROC: 30233N1 Transfusion of Nonautologous Red Blood Cells into Peripheral Vein, Percutaneous Approach (ICD-10-PCS; 2022-08-25)
DX: I85.11 Secondary esophageal varices with bleeding (principal); K64.8 Other hemorrhoids; D62 Acute posthemorrhagic anemia; D69.6 Thrombocytopenia, unspecified; K76.6 Portal hypertension; D68.9 Coagulation defect, unspecified; R16.2 Hepatomegaly with splenomegaly, not elsewhere classified; F10.20 Alcohol dependence, uncomplicated; K70.31 Alcoholic cirrhosis of liver with ascites; K22.5 Diverticulum of esophagus, acquired
CPT/HCPCS: 36415; 36430; 70450-TC; 74181-TC; 76700-TC; 78226-TC; 80048; 80053; 80076; 80307; 81003; 82140; 82248; 82728; 82962; 83540; 83550; 83735; 83880; 84100; 85025; 85027; 85384; 85610; 85730; 86140; 86704; 86803; 86850; 86900; 86901; 86922; 87340; 87517; 93306-TC; 99291; A9537; C9803-CS; P9017; P9034; P9058; U0003; U0005

== ENCOUNTER 2022-11-27 00:31 | Inpatient (IN) | payer OTHER ==
[2022-11-27 02:18] LABS: BASO % 1.3 % (0-2.0); EOS % 3.5 % (0-4.5); HEMATOCRIT 20.4 % (35.4-49); LYMPH % 39.4 % (8-40); MCH 27.1 pg (25.7-33.7); MCHC 33.1 g/dl (32.0-35.9); MEAN PLT VOLUME 7.1 fl (7.5-11.1); MONO % 8.8 % (3.8-10.2); PLATELET COUNT 65 10^3/uL (134-434); RBC 2.49 M/mm3 (4.00-5.60); RDW 18.7 % (11.9-15.9); WHITE BLOOD COUNT 4.3 K/mm3 (4.0-10.0)
[2022-11-27 02:22] LABS: HEMOGLOBIN 6.8 GM/dL (11.7-16.9)
[2022-11-27 02:26] LABS: INR 1.71 (0.83-1.09); PROTHROMBIN TIME (PATIENT) 19.7 SEC (9.7-13.0)
[2022-11-27 02:29] LABS: ACTIVATED PTT 43.2 SECONDS (25.2-36.5)
[2022-11-27 02:42] LABS: CALCIUM 7.1 mg/dL (8.5-10.1)
[2022-11-27 02:43] LABS: BLOOD UREA NITROGEN 7.2 mg/dL (7-18); MAGNESIUM 1.5 mg/dL (1.8-2.4)
[2022-11-27 02:46] LABS: CREATININE 0.4 mg/dL (0.55-1.3)
[2022-11-27 02:48] LABS: BILIRUBIN,TOTAL 1.8 mg/dL (0.2-1); TOT PROT 7.8 g/dl (6.4-8.2)
[2022-11-27 02:51] LABS: N-TERMINAL BNP 73.9 pg/ml (5-125)
[2022-11-27] MEDS ORDERED: MAGNESIUM SULF 50% (8.12 MEQ/2 ML-1 GM VIAL) IVPB ONE ×2 (03:13→09:24)
[2022-11-27] MEDS ORDERED: POTASSIUM CHLORIDE ORAL LIQUID 20 MEQ/15 ML PO ONE ×2 (03:13→03:18)
[2022-11-27] MEDS ORDERED: MAGNESIUM SULFATE IN WATER 2 GM/50 ML IVPB IVPB ONE (03:23)
[2022-11-27] MEDS ORDERED: POTASSIUM CHLORIDE ORAL LIQUID 20 MEQ/15 ML ONE (03:23)
[2022-11-27] MEDS ORDERED: KCL 10 MEQ IVPB 10 MEQ/100 ML INFUS.BAG IVPB ONE ×3 (04:12→08:03)
[2022-11-27] MEDS: KCL 10 MEQ IVPB 10 MEQ/100 ML INFUS.BAG IVPB SCH ×3 (04:32→08:34)
[2022-11-27] MEDS ORDERED: LORazepam 2 MG/ML SDV VIAL IVPUSH PRN (06:16)
[2022-11-27 07:50] LABS: URINE APPEARANCE CLEAR; URINE BILIRUBIN NEGATIVE (NEGATIVE); URINE COLOR YELLOW; URINE GLUCOSE (UA) NEGATIVE (NEGATIVE); URINE KETONE NEGATIVE (NEGATIVE); URINE LEUK ESTERASE NEGATIVE (NEGATIVE); URINE NITRITE NEGATIVE (NEGATIVE); URINE PROTEIN NEGATIVE (NEGATIVE)
[2022-11-27] MEDS ORDERED: LACTULOSE 20 GM/30 ML UDC (FOR ORAL USE ONLY) ONE (08:04)
[2022-11-27] MEDS: LACTULOSE 20 GM/30 ML UDC (FOR ORAL USE ONLY) PO SCH ×3 (08:34→21:58)
[2022-11-27] MEDS ORDERED: THIAMINE HCL 100 MG TABLET (FP) PO SCH (10:00)
[2022-11-27] MEDS ORDERED: MAGNESIUM OXIDE 400 MG TABLET (FP) PO SCH (10:00)
[2022-11-27] MEDS ORDERED: POLYETHYLENE GLYCOL (HEALTHYLAX) 3350 17 GM PACKET PO SCH (10:00)
[2022-11-27] MEDS: PANTOPRAZOLE 40 MG TABLET PO SCH (10:15)
[2022-11-27] MEDS: FOLIC ACID 1 MG TABLET (FP) PO SCH (10:15)
[2022-11-27] MEDS: MULTIVITAMINS (DAILY MVI) TABLET (FP) PO SCH (10:15)
[2022-11-27] MEDS: CARVEDILOL 6.25 MG TABLET (FP) PO SCH ×2 (10:15→21:58)
[2022-11-27] MEDS ORDERED: PANTOPRAZOLE 40 MG TABLET PO ONE (10:24)
[2022-11-27] MEDS ORDERED: THIAMINE HCL 100 MG TABLET (FP) ONE (10:25)
[2022-11-27] MEDS ORDERED: CARVEDILOL 6.25 MG TABLET (FP) ONE (10:25)
[2022-11-27] MEDS ORDERED: FOLIC ACID 1 MG TABLET (FP) ONE (10:25)
[2022-11-27] MEDS ORDERED: MULTIVITAMINS (DAILY MVI) TABLET (FP) ONE (10:25)
[2022-11-27] MEDS ORDERED: MAGNESIUM 1GM/D5W - 1 GM/100 ML IVPB IVPB ONE (10:27)
[2022-11-27 10:40] LABS: COCAINE, UR NEGATIVE (NEGATIVE); METHADONE, UR NEGATIVE (NEGATIVE); OPIATES, URI NEGATIVE (NEGATIVE); PHENCYCLIDINE,URINE NEGATIVE (NEGATIVE); URINE AMPHETAMINES NEGATIVE (NEGATIVE); URINE BARBITURATES NEGATIVE (NEGATIVE); URINE BENZODIAZEPINES NEGATIVE (NEGATIVE)
[2022-11-27] MEDS ORDERED: TETRACAINE/BENZOCAINE/BUTAMBEN 20 GM SPR TP ONE (12:42)
[2022-11-27] MEDS ORDERED: MIDAZOLAM HCL 2 MG/2 ML SINGLE DOSE VIAL ONE (12:43)
[2022-11-27] MEDS ORDERED: LORazepam 1 MG TABLET PO PRN (16:40)
[2022-11-27 17:13] VITALS: BMI 30.6
[2022-11-27 19:53] LABS: CALCIUM 7.1 mg/dL (8.5-10.1); MAGNESIUM 1.5 mg/dL (1.8-2.4)
[2022-11-27 19:54] LABS: CHOLESTEROL 149 mg/dL (50-200)
[2022-11-27 19:55] LABS: IRON SERUM 64 ug/dL (50-175); TOTAL IRON BINDING CAPACITY 308 ug/dL (250-450); TRIGLYCERIDES 97 mg/dL (0-150)
[2022-11-27 19:56] LABS: CREATININE 0.4 mg/dL (0.55-1.3); LDL CHOLESTEROL (ONLY SJRH) 89 mg/dL (5-100); PHOSPHOROUS 3.5 mg/dL (2.5-4.9)
[2022-11-27 19:57] LABS: HDL CHOLESTEROL 51 mg/dL (40-60)
[2022-11-27 19:58] LABS: BILIRUBIN,TOTAL 2.6 mg/dL (0.2-1); TOT PROT 7.9 g/dl (6.4-8.2)
[2022-11-27 20:47] LABS: LDH 296 U/L (87-246)
[2022-11-27] MEDS: THIAMINE HCL 100 MG TABLET (FP) PO SCH (21:59)
[2022-11-27] MEDS: LORazepam 1 MG TABLET PO SCH (22:21)
[2022-11-28] MEDS: LORazepam 1 MG TABLET PO SCH ×5 (06:04→22:01)
[2022-11-28] MEDS: LACTULOSE 20 GM/30 ML UDC (FOR ORAL USE ONLY) PO SCH ×3 (06:04→22:00)
[2022-11-28 08:38] LABS: BASO % 0.7 % (0-2.0); EOS % 2.2 % (0-4.5); HEMATOCRIT 21.2 % (35.4-49); LYMPH % 28.7 % (8-40); MCH 27.3 pg (25.7-33.7); MCHC 33.1 g/dl (32.0-35.9); MEAN CELL VOLUME 82.7 fl (80-96); MEAN PLT VOLUME 7.8 fl (7.5-11.1); MONO % 8.9 % (3.8-10.2); NEUT % 59.5 % (42.8-82.8); PLATELET COUNT 47 10^3/uL (134-434); RBC 2.56 M/mm3 (4.00-5.60); RDW 18.6 % (11.9-15.9); WHITE BLOOD COUNT 3.1 K/mm3 (4.0-10.0)
[2022-11-28 08:57] LABS: ALBUMIN 1.9 g/dl (3.4-5.0); BLOOD UREA NITROGEN 7.2 mg/dL (7-18); CALCIUM 8.1 mg/dL (8.5-10.1); MAGNESIUM 1.6 mg/dL (1.8-2.4)
[2022-11-28 08:59] LABS: PHOSPHOROUS 3.5 mg/dL (2.5-4.9)
[2022-11-28 09:00] LABS: CREATININE 0.5 mg/dL (0.55-1.3); TOT PROT 7.6 g/dl (6.4-8.2)
[2022-11-28 09:01] LABS: BILIRUBIN,TOTAL 2.3 mg/dL (0.2-1)
[2022-11-28] MEDS: FOLIC ACID 1 MG TABLET (FP) PO SCH (09:28)
[2022-11-28] MEDS: CARVEDILOL 6.25 MG TABLET (FP) PO SCH ×2 (09:28→22:02)
[2022-11-28] MEDS: MULTIVITAMINS (DAILY MVI) TABLET (FP) PO SCH (09:28)
[2022-11-28] MEDS: PANTOPRAZOLE 40 MG TABLET PO SCH (09:28)
[2022-11-28] MEDS: THIAMINE HCL 100 MG TABLET (FP) PO SCH ×2 (09:28→22:02)
[2022-11-28] MEDS ORDERED: MAGNESIUM SULF 50% (8.12 MEQ/2 ML-1 GM VIAL) IVPB ONE (10:00)
[2022-11-28] MEDS: RIFAXIMIN 550 MG TABLET PO SCH ×2 (11:23→22:04)
[2022-11-29] MEDS: LACTULOSE 20 GM/30 ML UDC (FOR ORAL USE ONLY) PO SCH ×4 (05:28→22:53)
[2022-11-29] MEDS: LORazepam 1 MG TABLET PO SCH ×4 (05:28→22:43)
[2022-11-29 08:20] LABS: BASO % 0.7 % (0-2.0); HEMATOCRIT 23.8 % (35.4-49); LYMPH % 28.9 % (8-40); MCH 27.8 pg (25.7-33.7); MCHC 33.8 g/dl (32.0-35.9); MEAN CELL VOLUME 82.2 fl (80-96); MEAN PLT VOLUME 7.8 fl (7.5-11.1); MONO % 9.9 % (3.8-10.2); NEUT % 56.5 % (42.8-82.8); PLATELET COUNT 43 10^3/uL (134-434); RDW 18.7 % (11.9-15.9); WHITE BLOOD COUNT 3.3 K/mm3 (4.0-10.0)
[2022-11-29 08:26] LABS: ALBUMIN 1.9 g/dl (3.4-5.0); BLOOD UREA NITROGEN 7.3 mg/dL (7-18); MAGNESIUM 1.4 mg/dL (1.8-2.4)
[2022-11-29 08:29] LABS: CREATININE 0.5 mg/dL (0.55-1.3)
[2022-11-29 08:30] LABS: BILIRUBIN,TOTAL 2.6 mg/dL (0.2-1); TOT PROT 7.6 g/dl (6.4-8.2)
[2022-11-29] MEDS: RIFAXIMIN 550 MG TABLET PO SCH ×2 (10:07→23:53)
[2022-11-29] MEDS: PANTOPRAZOLE 40 MG TABLET PO SCH (10:07)
[2022-11-29] MEDS: MULTIVITAMINS (DAILY MVI) TABLET (FP) PO SCH (10:07)
[2022-11-29] MEDS: CARVEDILOL 6.25 MG TABLET (FP) PO SCH ×2 (10:07→22:44)
[2022-11-29] MEDS: FOLIC ACID 1 MG TABLET (FP) PO SCH (10:07)
[2022-11-29] MEDS: THIAMINE HCL 100 MG TABLET (FP) PO SCH ×2 (10:07→22:44)
[2022-11-29] MEDS ORDERED: MAGNESIUM OXIDE 400 MG TABLET (FP) PO ONE (11:22)
[2022-11-30] MEDS ORDERED: LORazepam 0.5 MG TABLET PO PRN
[2022-11-30] MEDS: LORazepam 0.5 MG TABLET PO SCH ×4 (06:07→22:23)
[2022-11-30] MEDS: LACTULOSE 20 GM/30 ML UDC (FOR ORAL USE ONLY) PO SCH ×3 (06:08→22:20)
[2022-11-30 08:16] LABS: BASO % 0.7 % (0-2.0); EOS % 4.3 % (0-4.5); HEMATOCRIT 24.4 % (35.4-49); HEMOGLOBIN 8.3 GM/dL (11.7-16.9); MCH 28.3 pg (25.7-33.7); MCHC 34.1 g/dl (32.0-35.9); MEAN PLT VOLUME 7.9 fl (7.5-11.1); PLATELET COUNT 46 10^3/uL (134-434); RBC 2.94 M/mm3 (4.00-5.60); RDW 18.8 % (11.9-15.9); WHITE BLOOD COUNT 3.9 K/mm3 (4.0-10.0)
[2022-11-30 08:38] LABS: BLOOD UREA NITROGEN 10.6 mg/dL (7-18); MAGNESIUM 1.5 mg/dL (1.8-2.4)
[2022-11-30 08:41] LABS: CREATININE 0.5 mg/dL (0.55-1.3)
[2022-11-30 08:42] LABS: BILIRUBIN,TOTAL 2.1 mg/dL (0.2-1); TOT PROT 8.1 g/dl (6.4-8.2)
[2022-11-30] MEDS: RIFAXIMIN 550 MG TABLET PO SCH ×2 (09:35→22:23)
[2022-11-30] MEDS: FOLIC ACID 1 MG TABLET (FP) PO SCH (09:35)
[2022-11-30] MEDS: CARVEDILOL 6.25 MG TABLET (FP) PO SCH ×2 (09:35→22:20)
[2022-11-30] MEDS: MULTIVITAMINS (DAILY MVI) TABLET (FP) PO SCH (09:35)
[2022-11-30] MEDS: THIAMINE HCL 100 MG TABLET (FP) PO SCH ×2 (09:35→22:20)
[2022-11-30] MEDS: PANTOPRAZOLE 40 MG TABLET PO SCH (09:35)
[2022-11-30] MEDS ORDERED: MAGNESIUM SULF 50% (8.12 MEQ/2 ML-1 GM VIAL) IVPB ONE (15:00)
[2022-12-01] MEDS ORDERED: LORazepam 0.5 MG TABLET PO ONE (05:00)
[2022-12-01] MEDS: LACTULOSE 20 GM/30 ML UDC (FOR ORAL USE ONLY) PO SCH ×2 (06:33→13:11)
[2022-12-01 07:44] LABS: BASO % 0.8 % (0-2.0); EOS % 4.8 % (0-4.5); HEMATOCRIT 24.9 % (35.4-49); HEMOGLOBIN 8.4 GM/dL (11.7-16.9); LYMPH % 24.9 % (8-40); MCH 28.4 pg (25.7-33.7); MCHC 33.8 g/dl (32.0-35.9); MEAN CELL VOLUME 84.1 fl (80-96); MEAN PLT VOLUME 8.3 fl (7.5-11.1); MONO % 10.5 % (3.8-10.2); PLATELET COUNT 58 10^3/uL (134-434); RBC 2.97 M/mm3 (4.00-5.60); RDW 19.9 % (11.9-15.9); WHITE BLOOD COUNT 4.8 K/mm3 (4.0-10.0)
[2022-12-01 07:49] LABS: INR 1.9 (0.83-1.09); PROTHROMBIN TIME (PATIENT) 21.9 SEC (9.7-13.0)
[2022-12-01 08:14] LABS: BLOOD UREA NITROGEN 10.8 mg/dL (7-18); CALCIUM 8.1 mg/dL (8.5-10.1)
[2022-12-01 08:15] LABS: MAGNESIUM 1.6 mg/dL (1.8-2.4)
[2022-12-01 08:17] LABS: BILIRUBIN,DIRECT 1.3 mg/dL (0.0-0.2); CREATININE 0.5 mg/dL (0.55-1.3)
[2022-12-01 08:18] LABS: PHOSPHOROUS 4.2 mg/dL (2.5-4.9)
[2022-12-01 08:19] LABS: BILIRUBIN,TOTAL 2.1 mg/dL (0.2-1); TOT PROT 8.1 g/dl (6.4-8.2)
[2022-12-01] MEDS: FOLIC ACID 1 MG TABLET (FP) PO SCH (09:53)
[2022-12-01] MEDS: CARVEDILOL 6.25 MG TABLET (FP) PO SCH (09:53)
[2022-12-01] MEDS: PANTOPRAZOLE 40 MG TABLET PO SCH (09:53)
[2022-12-01] MEDS: RIFAXIMIN 550 MG TABLET PO SCH (09:53)
[2022-12-01] MEDS: THIAMINE HCL 100 MG TABLET (FP) PO SCH (09:53)
[2022-12-01] MEDS: MULTIVITAMINS (DAILY MVI) TABLET (FP) PO SCH (09:53)
[2022-12-01 14:44] VITALS: BP 124/64; PULSE 74; RESP 16; TEMP 98.4
== END 2022-12-01 17:17 | disposition home or self-care (01) | DRG 280 ==
LOC: JER 00:31 → JERBED 02:26 → J4W 16:06
PROVIDERS: ADMIT Internal Medicine; ATTEND Internal Medicine
PROC: 30233N1 Transfusion of Nonautologous Red Blood Cells into Peripheral Vein, Percutaneous Approach (ICD-10-PCS; 2022-11-27)
PROC: 0DJ08ZZ Inspection of Upper Intestinal Tract, Via Natural or Artificial Opening Endoscopic (ICD-10-PCS; principal; 2022-11-27 12:00)
DX: K70.31 Alcoholic cirrhosis of liver with ascites (principal); D64.9 Anemia, unspecified; I85.10 Secondary esophageal varices without bleeding; F10.20 Alcohol dependence, uncomplicated; D69.6 Thrombocytopenia, unspecified; I45.10 Unspecified right bundle-branch block; E88.09 Other disorders of plasma-protein metabolism, not elsewhere classified; K29.60 Other gastritis without bleeding; E87.6 Hypokalemia; E83.42 Hypomagnesemia; K64.8 Other hemorrhoids; K72.10 Chronic hepatic failure without coma; I51.7 Cardiomegaly; Y90.8 Blood alcohol level of 240 mg/100 ml or more; R04.0 Epistaxis; K43.9 Ventral hernia without obstruction or gangrene; K80.20 Calculus of gallbladder without cholecystitis without obstruction
CPT/HCPCS: 0241U-QW; 36415; 36430; 71046-TC-FY; 74178-TC; 74183-TC; 76942-TC; 80053; 80061; 80307; 81003; 82248; 82272; 82728; 83010; 83540; 83550; 83615; 83735; 83880; 84100; 84443; 84466; 85025; 85027; 85045; 85610; 85730; 86850; 86900; 86901; 86922; 93005; 93010; 93306-TC; 93970-TC; 97116-GP; 97162-GP; 99285-25; P9058; Q9967

== ENCOUNTER 2022-12-28 10:44 | Emergency (ER) | payer OTHER ==
[2022-12-28 10:56] VITALS: BMI 28.1
[2022-12-28] MEDS ORDERED: VANCOMYCIN 1,000 MG in DEXTROSE 5%-WATER - 250 ML IVPB ONE (11:04)
[2022-12-28] MEDS ORDERED: CEFTRIAXONE 1,000 MG in DEXTROSE 5%-WATER - 50 ML IVPB ONE ×2 (11:05→15:54)
[2022-12-28] MEDS ORDERED: SODIUM CHLORIDE 0.9% 1000 ML INFUS.BAG IV ONE ×2 (11:05→12:16)
[2022-12-28] MEDS ORDERED: ACETAMINOPHEN 1000 MG/100 ML BAG IVPB ONE (11:06)
[2022-12-28] MEDS ORDERED: ACETAMINOPHEN INJECTION 100 ML IVPB ONE (11:41)
[2022-12-28] MEDS ORDERED: VANCOMYCIN/WATER FOR INJ (PEG) 1,000 MG/200 ML BAG IVPB ONE ×2 (11:42→15:58)
[2022-12-28] MEDS ORDERED: CEFTRIAXONE 1 GM/50 ML BAG ONE (11:42)
[2022-12-28 11:55] LABS: BASO % 0.3 % (0-2.0); HEMATOCRIT 23.7 % (35.4-49); HEMOGLOBIN 7.9 GM/dL (11.7-16.9); INR 2.01 (0.83-1.09); LYMPH % 10.5 % (8-40); MCH 27.4 pg (25.7-33.7); MCHC 33.4 g/dl (32.0-35.9); MEAN CELL VOLUME 81.9 fl (80-96); MEAN PLT VOLUME 8.1 fl (7.5-11.1); MONO % 10.3 % (3.8-10.2); NEUT % 78.9 % (42.8-82.8); PROTHROMBIN TIME (PATIENT) 23.1 SEC (9.7-13.0); RDW 23.1 % (11.9-15.9); WHITE BLOOD COUNT 6.4 K/mm3 (4.0-10.0)
[2022-12-28 11:57] LABS: ACTIVATED PTT 44.6 SECONDS (25.2-36.5)
[2022-12-28 11:59] LABS: PLATELET COUNT 30 10^3/uL (134-434); VENOUS BASE EXCESS 1.4 mmol/L (-2-2); VENOUS O2 SATURATION 80.7 % (70-80); VENOUS PCO2 34.9 mmHg (38-52); VENOUS PH 7.471 (7.310-7.410)
[2022-12-28 12:06] LABS: CHLORIDE 102 mmol/L (98-107); SODIUM 134 mmol/L (136-145)
[2022-12-28 12:07] LABS: CALCIUM 7.4 mg/dL (8.5-10.1); GLUCOSE,RANDOM 103 mg/dL (74-106)
[2022-12-28 12:08] LABS: ALBUMIN 2.2 g/dl (3.4-5.0); ANION GAP 8 MMOL/L (8-16); BLOOD UREA NITROGEN 7.5 mg/dL (7-18); CO2 24 mmol/L (21-32)
[2022-12-28 12:11] LABS: CREATININE 0.5 mg/dL (0.55-1.3); SGOT/AST 112 U/L (15-37); SGPT/ALT 34 U/L (13-61)
[2022-12-28 12:12] LABS: BILIRUBIN,TOTAL 4.1 mg/dL (0.2-1); TOT PROT 8.4 g/dl (6.4-8.2)
[2022-12-28 12:14] LABS: ALK PHOS 153 U/L (45-117)
[2022-12-28 12:16] LABS: LACTIC ACID 3.9 mmol/L (0.4-2.0)
[2022-12-28 12:21] LABS: ANISOCYTOSIS 1+; MACROCYTOSIS 0
[2022-12-28 15:25] LABS: LACTIC ACID 2.4 mmol/L (0.4-2.0)
[2022-12-28] MEDS ORDERED: VANCOMYCIN 1 GM in D5W (PRE-DOCKED) 1,000 MG/250 ML IVPB ONE (15:54)
[2022-12-28] MEDS ORDERED: cefTRIAXone SODIUM 1 GM VIAL ONE (15:58)
[2022-12-28] MEDS ORDERED: MAGNESIUM SULF 50% (8.12 MEQ/2 ML-1 GM VIAL) IVPB ONE (17:39)
[2022-12-28] MEDS ORDERED: MAGNESIUM 1GM/D5W - 1 GM/100 ML IVPB IVPB ONE (17:48)
[2022-12-28 17:54] VITALS: TEMP 99.4
[2022-12-28 18:10] LABS: MAGNESIUM 1.3 mg/dL (1.8-2.4)
[2022-12-28 20:03] VITALS: BP 134/72; PULSE 90; RESP 20
== END 2022-12-28 20:03 | disposition short-term general hospital (02) ==
LOC: JER 10:44
DX: L03.211 Cellulitis of face (principal); L03.213 Periorbital cellulitis; Z20.822 Contact with and (suspected) exposure to COVID-19
CPT/HCPCS: 0241U-QW; 36415; 70481-TC; 71045-TC-FY; 80053; 82550; 82553; 82803; 83605; 83735; 84100; 84484; 85025; 85610; 85730; 87040; 93005; 93010; 99285-25; Q9967

== ENCOUNTER 2023-02-05 08:58 | Inpatient (IN) | payer OTHER ==
[2023-02-05] MEDS ORDERED: SODIUM CHLORIDE 0.9% 500 ML INFUS.BAG IV ONE ×2 (09:29→10:51)
[2023-02-05 10:02] LABS: HEMATOCRIT 28.1 % (35.4-49); HEMOGLOBIN 9.2 GM/dL (11.7-16.9); MCH 27.1 pg (25.7-33.7); MCHC 32.8 g/dl (32.0-35.9); MEAN CELL VOLUME 82.6 fl (80-96); PLATELET COUNT 62 10^3/uL (134-434); RDW 20.7 % (11.9-15.9); WHITE BLOOD COUNT 4.2 K/mm3 (4.0-10.0)
[2023-02-05 10:09] LABS: EPI CELLS 4 /uL (0-25.1); HYALINE CASTS 1 /uL (0-3.1); PH,URINE 6.5 (5.0-8.0); URINE APPEARANCE CLEAR; URINE BACTERIA 5 /uL (0-1359); URINE BILIRUBIN NEGATIVE (NEGATIVE); URINE COLOR YELLOW; URINE GLUCOSE (UA) NEGATIVE (NEGATIVE); URINE KETONE NEGATIVE (NEGATIVE); URINE LEUK ESTERASE NEGATIVE (NEGATIVE); URINE NITRITE NEGATIVE (NEGATIVE); URINE PROTEIN NEGATIVE (NEGATIVE); URINE RBC 23 /uL (0-23.9); URINE WBC 4 /uL (0-25.8)
[2023-02-05 10:10] LABS: INR 1.67 (0.83-1.09); PROTHROMBIN TIME (PATIENT) 19.3 SEC (9.7-13.0)
[2023-02-05 10:13] LABS: ACTIVATED PTT 44.3 SECONDS (25.2-36.5)
[2023-02-05 10:31] LABS: POTASSIUM 3.3 mmol/L (3.5-5.1)
[2023-02-05 10:34] LABS: ALBUMIN 2.2 g/dl (3.4-5.0); BLOOD UREA NITROGEN 7.3 mg/dL (7-18); CALCIUM 7.8 mg/dL (8.5-10.1); MAGNESIUM 1.6 mg/dL (1.8-2.4)
[2023-02-05 10:37] LABS: CREATININE 0.4 mg/dL (0.55-1.3)
[2023-02-05 10:38] LABS: TOT PROT 8.7 g/dl (6.4-8.2)
[2023-02-05 10:39] LABS: BILIRUBIN,TOTAL 2.4 mg/dL (0.2-1)
[2023-02-05 10:40] LABS: LACTIC ACID 2.9 mmol/L (0.4-2.0)
[2023-02-05] MEDS ORDERED: THIAMINE HCL 200 MG/2 ML VIAL IVPB ONE (10:50)
[2023-02-05] MEDS ORDERED: MAGNESIUM SULF 50% (8.12 MEQ/2 ML-1 GM VIAL) IVPB ONE ×2 (10:50→18:58)
[2023-02-05] MEDS ORDERED: MULTIVITAMINS (DAILY MVI) TABLET (FP) PO ONE (10:50)
[2023-02-05] MEDS ORDERED: POTASSIUM CHLORIDE TABS 20 MEQ TABLET.ER (FP) PO ONE ×2 (10:50→11:31)
[2023-02-05 11:20] LABS: VENOUS BASE EXCESS -0.7 mmol/L (-2-2); VENOUS O2 SATURATION 91.6 % (70-80); VENOUS PCO2 45.4 mmHg (38-52); VENOUS PH 7.359 (7.310-7.410)
[2023-02-05] MEDS ORDERED: MULTIVITAMINS (DAILY MVI) TABLET (FP) ONE (11:31)
[2023-02-05] MEDS ORDERED: THIAMINE HCL 200 MG/2 ML VIAL ONE (11:31)
[2023-02-05] MEDS ORDERED: MAGNESIUM SULFATE IN WATER 2 GM/50 ML IVPB IVPB ONE (11:31)
[2023-02-05] MEDS ORDERED: AMPICILLIN NA/SULBACTAM NA 3 GM in SODIUM CHLORIDE 100 ML IVPB ONE (12:38)
[2023-02-05] MEDS ORDERED: AMPICILLIN NA/SULBACTAM NA 1.5 GM VIAL ONE (12:41)
[2023-02-05 13:40] LABS: LACTIC ACID 2.4 mmol/L (0.4-2.0)
[2023-02-05] MEDS ORDERED: FOLIC ACID INJECTION - 1 MG, THIAMINE HCL 100 MG, MULTIVIT INJECTION ADULT 10 ML in SOD... IVPB ONE (15:39)
[2023-02-05] MEDS ORDERED: chlordiazePOXIDE HCL 25 MG CAPSULE PO PRN (15:51)
[2023-02-05] MEDS ORDERED: chlordiazePOXIDE HCL 25 MG CAPSULE ONE (17:21)
[2023-02-05] MEDS: chlordiazePOXIDE HCL 25 MG CAPSULE PO SCH ×2 (17:25→23:40)
[2023-02-05] MEDS ORDERED: AMPICILLIN NA/SULBACTAM NA 1.5 GM in SODIUM CHLORIDE 100 ML IVPB ONE ×2 (19:00→19:45)
[2023-02-05] MEDS ORDERED: POTASSIUM CHLORIDE ORAL LIQUID 20 MEQ/15 ML PO ONE (19:29)
[2023-02-05] MEDS: AMPICILLIN NA/SULBACTAM NA 1.5 GM in SODIUM CHLORIDE 100 ML IVPB SCH ×2 (20:46→21:28)
[2023-02-05 21:30] LABS: RETICULOCYTES 1.29 % (0.5-1.5)
[2023-02-05 21:45] LABS: BILIRUBIN,DIRECT 1.5 mg/dL (0.0-0.2)
[2023-02-05 23:01] VITALS: BMI 33.5
[2023-02-06] MEDS ORDERED: AMPICILLIN NA/SULBACTAM NA 1.5 GM in SODIUM CHLORIDE 100 ML IVPB ONE ×2 (01:00→07:00)
[2023-02-06] MEDS: AMPICILLIN NA/SULBACTAM NA 1.5 GM in SODIUM CHLORIDE 100 ML IVPB SCH (02:49)
[2023-02-06] MEDS: chlordiazePOXIDE HCL 25 MG CAPSULE PO SCH ×4 (05:07→22:25)
[2023-02-06] MEDS ORDERED: POTASSIUM CHLORIDE ORAL LIQUID 20 MEQ/15 ML PO ONE ×2 (09:00→14:26)
[2023-02-06] MEDS ORDERED: AMPICILLIN NA/SULBACTAM NA 1.5 GM in SODIUM CHLORIDE 100 ML IVPB SCH ×2 (09:00→15:00)
[2023-02-06 09:03] LABS: BASO % 0.6 % (0-2.0); EOS % 2.7 % (0-4.5); HEMATOCRIT 21.4 % (35.4-49); HEMOGLOBIN 7.4 GM/dL (11.7-16.9); LYMPH % 42.9 % (8-40); MCH 28.2 pg (25.7-33.7); MCHC 34.4 g/dl (32.0-35.9); MEAN CELL VOLUME 82.1 fl (80-96); MEAN PLT VOLUME 8.3 fl (7.5-11.1); MONO % 9.2 % (3.8-10.2); NEUT % 44.6 % (42.8-82.8); RBC 2.61 M/mm3 (4.00-5.60); RDW 20.5 % (11.9-15.9); WHITE BLOOD COUNT 2.7 K/mm3 (4.0-10.0)
[2023-02-06 09:25] LABS: POTASSIUM 3.6 mmol/L (3.5-5.1)
[2023-02-06 09:29] LABS: BLOOD UREA NITROGEN 3.4 mg/dL (7-18)
[2023-02-06 09:30] LABS: ALBUMIN 1.9 g/dl (3.4-5.0); CALCIUM 7.4 mg/dL (8.5-10.1); MAGNESIUM 1.5 mg/dL (1.8-2.4)
[2023-02-06 09:32] LABS: CREATININE 0.3 mg/dL (0.55-1.3)
[2023-02-06 09:34] LABS: BILIRUBIN,TOTAL 2.5 mg/dL (0.2-1); TOT PROT 7.4 g/dl (6.4-8.2)
[2023-02-06 09:35] LABS: ANISOCYTOSIS 1+; MACROCYTOSIS 1+; PLATELET ESTIMATE DECREASED
[2023-02-06 09:39] LABS: PLATELET COUNT 33 10^3/uL (134-434)
[2023-02-06] MEDS: SODIUM CHLORIDE 1,000 ML IV SCH ×2 (10:18→17:49)
[2023-02-06] MEDS: FOLIC ACID 1 MG TABLET (FP) PO SCH (10:20)
[2023-02-06] MEDS: THIAMINE HCL 200 MG/2 ML VIAL IVPB SCH (10:21)
[2023-02-06] MEDS: MULTIVITAMINS (DAILY MVI) TABLET (FP) PO SCH (10:21)
[2023-02-06] MEDS ORDERED: ENOXAPARIN NA (PORCINE) 40 MG/0.4 ML DISP.SYRIN SQ SCH (14:45)
[2023-02-07] MEDS: SODIUM CHLORIDE 1,000 ML IV SCH ×4 (00:34→22:54)
[2023-02-07] MEDS: chlordiazePOXIDE HCL 25 MG CAPSULE PO SCH ×4 (05:03→22:54)
[2023-02-07 08:43] LABS: BASO % 0.5 % (0-2.0); EOS % 4.2 % (0-4.5); HEMATOCRIT 22.5 % (35.4-49); HEMOGLOBIN 7.7 GM/dL (11.7-16.9); LYMPH % 34.8 % (8-40); MCH 28.4 pg (25.7-33.7); MCHC 34.4 g/dl (32.0-35.9); MEAN CELL VOLUME 82.5 fl (80-96); MONO % 9.3 % (3.8-10.2); NEUT % 51.2 % (42.8-82.8); RBC 2.73 M/mm3 (4.00-5.60); RDW 19.9 % (11.9-15.9); WHITE BLOOD COUNT 2.2 K/mm3 (4.0-10.0)
[2023-02-07 08:47] LABS: PLATELET COUNT 35 10^3/uL (134-434)
[2023-02-07 09:03] LABS: POTASSIUM 3.6 mmol/L (3.5-5.1)
[2023-02-07 09:08] LABS: CALCIUM 7.4 mg/dL (8.5-10.1)
[2023-02-07 09:11] LABS: BILIRUBIN,DIRECT 1.7 mg/dL (0.0-0.2)
[2023-02-07 09:12] LABS: BILIRUBIN,TOTAL 3.2 mg/dL (0.2-1); CREATININE 0.4 mg/dL (0.55-1.3); TOT PROT 7.9 g/dl (6.4-8.2)
[2023-02-07] MEDS: FOLIC ACID 1 MG TABLET (FP) PO SCH (09:20)
[2023-02-07] MEDS: MULTIVITAMINS (DAILY MVI) TABLET (FP) PO SCH (09:22)
[2023-02-07] MEDS: THIAMINE HCL 200 MG/2 ML VIAL IVPB SCH (09:22)
[2023-02-07] MEDS ORDERED: PHENYLEPHRINE 0.25% NASAL SPRAY 15 ML BOTTLE NS PRN (15:40)
[2023-02-08] MEDS ORDERED: chlordiazePOXIDE HCL 10 MG CAPSULE PO PRN
[2023-02-08] MEDS: chlordiazePOXIDE HCL 10 MG CAPSULE PO SCH ×4 (05:09→22:15)
[2023-02-08 08:19] LABS: BASO % 0.5 % (0-2.0); EOS % 4.6 % (0-4.5); HEMATOCRIT 23.4 % (35.4-49); LYMPH % 31.5 % (8-40); MCH 28.4 pg (25.7-33.7); MCHC 34.2 g/dl (32.0-35.9); MEAN PLT VOLUME 8.3 fl (7.5-11.1); MONO % 10.9 % (3.8-10.2); NEUT % 52.5 % (42.8-82.8); PLATELET COUNT 37 10^3/uL (134-434); RBC 2.81 M/mm3 (4.00-5.60); WHITE BLOOD COUNT 2.9 K/mm3 (4.0-10.0)
[2023-02-08 08:30] LABS: POTASSIUM 3.2 mmol/L (3.5-5.1)
[2023-02-08 08:36] LABS: BLOOD UREA NITROGEN 5.7 mg/dL (7-18)
[2023-02-08 08:39] LABS: BILIRUBIN,DIRECT 1.6 mg/dL (0.0-0.2); CREATININE 0.4 mg/dL (0.55-1.3)
[2023-02-08 08:40] LABS: TOT PROT 7.9 g/dl (6.4-8.2)
[2023-02-08 08:41] LABS: BILIRUBIN,TOTAL 2.8 mg/dL (0.2-1)
[2023-02-08] MEDS: THIAMINE HCL 200 MG/2 ML VIAL IVPB SCH (10:25)
[2023-02-08] MEDS: MULTIVITAMINS (DAILY MVI) TABLET (FP) PO SCH (10:25)
[2023-02-08] MEDS: FOLIC ACID 1 MG TABLET (FP) PO SCH (10:25)
[2023-02-08] MEDS: SODIUM CHLORIDE 1,000 ML IV SCH (17:10)
[2023-02-09] MEDS ORDERED: chlordiazePOXIDE HCL 10 MG CAPSULE PO SCH (05:00)
[2023-02-09] MEDS: SODIUM CHLORIDE 1,000 ML IV SCH (06:17)
[2023-02-09] MEDS: FOLIC ACID 1 MG TABLET (FP) PO SCH (10:30)
[2023-02-09] MEDS: THIAMINE HCL 200 MG/2 ML VIAL IVPB SCH (10:30)
[2023-02-09] MEDS: MULTIVITAMINS (DAILY MVI) TABLET (FP) PO SCH (10:30)
[2023-02-09 11:23] VITALS: BP 126/73; PULSE 95; RESP 19; TEMP 97.8
[2023-02-09 11:41] LABS: BASO % 0.8 % (0-2.0); EOS % 4.3 % (0-4.5); HEMATOCRIT 22.8 % (35.4-49); HEMOGLOBIN 7.5 GM/dL (11.7-16.9); LYMPH % 25.2 % (8-40); MCH 27.6 pg (25.7-33.7); MCHC 32.9 g/dl (32.0-35.9); MEAN CELL VOLUME 84.1 fl (80-96); MEAN PLT VOLUME 7.6 fl (7.5-11.1); MONO % 12.6 % (3.8-10.2); NEUT % 57.1 % (42.8-82.8); PLATELET COUNT 50 10^3/uL (134-434); RBC 2.71 M/mm3 (4.00-5.60); RDW 20.3 % (11.9-15.9); WHITE BLOOD COUNT 3.6 K/mm3 (4.0-10.0)
[2023-02-09 11:55] LABS: POTASSIUM 3.4 mmol/L (3.5-5.1)
[2023-02-09 12:00] LABS: ALBUMIN 1.9 g/dl (3.4-5.0); CALCIUM 7.9 mg/dL (8.5-10.1)
[2023-02-09 12:01] LABS: MAGNESIUM 1.3 mg/dL (1.8-2.4)
[2023-02-09 12:03] LABS: BILIRUBIN,DIRECT 1.6 mg/dL (0.0-0.2); CREATININE 0.4 mg/dL (0.55-1.3)
[2023-02-09 12:05] LABS: BILIRUBIN,TOTAL 2.7 mg/dL (0.2-1); TOT PROT 7.8 g/dl (6.4-8.2)
[2023-02-09] MEDS ORDERED: AMOX TR/POT CLAV 875MG/125MG TABLETS (FP) PO SCH (17:30)
[2023-02-10] MEDS ORDERED: chlordiazePOXIDE HCL 10 MG CAPSULE PO ONE (05:00)
== END 2023-02-09 11:37 | disposition left against medical advice (07) | DRG 770 ==
LOC: JER 08:58 → JERBED 12:38 → OBSVTOIN 19:02 → J5S 21:15
PROVIDERS: ADMIT Internal Medicine; ATTEND Internal Medicine
PROC: HZ2ZZZZ Detoxification Services for Substance Abuse Treatment (ICD-10-PCS; principal; 2023-02-05)
DX: F10.239 Alcohol dependence with withdrawal, unspecified (principal); D61.818 Other pancytopenia; J18.9 Pneumonia, unspecified organism; E83.42 Hypomagnesemia; D47.3 Essential (hemorrhagic) thrombocythemia; E66.9 Obesity, unspecified; E87.6 Hypokalemia; K43.9 Ventral hernia without obstruction or gangrene; K70.30 Alcoholic cirrhosis of liver without ascites; R74.01 Elevation of levels of liver transaminase levels; Z59.00 Homelessness unspecified; Z68.33 Body mass index [BMI] 33.0-33.9, adult
CPT/HCPCS: 0241U-QW; 36415; 70450-TC; 71045-TC-FY; 71260-TC; 72125-TC; 74177-TC; 76705-TC; 80048; 80053; 80076; 80307; 81003; 82248; 82728; 82803; 83540; 83550; 83605; 83690; 83735; 84100; 84466; 85025; 85027; 85045; 85610; 85730; 86850; 86900; 86901; 87040; 87086; 87899; 93005; 93010; 97116-GP; 97161-GP; 99285-25; G0378; Q9967

== ENCOUNTER 2023-02-14 15:45 | Observation (INO) | payer OTHER ==
[2023-02-14 16:09] VITALS: BMI 22.1
[2023-02-14] MEDS ORDERED: DIPHTH,PERTUSS(ACELL),TET 0.5 ML DISP.SYRIN IM ONE ×2 (16:57→17:31)
[2023-02-14 17:13] LABS: BASO % 0.5 % (0-2.0); EOS % 5.2 % (0-4.5); HEMATOCRIT 23.2 % (35.4-49); HEMOGLOBIN 7.6 GM/dL (11.7-16.9); LYMPH % 36.2 % (8-40); MCH 27.8 pg (25.7-33.7); MCHC 32.9 g/dl (32.0-35.9); MEAN CELL VOLUME 84.6 fl (80-96); MEAN PLT VOLUME 7.2 fl (7.5-11.1); MONO % 13.9 % (3.8-10.2); NEUT % 44.2 % (42.8-82.8); PLATELET COUNT 73 10^3/uL (134-434); RBC 2.75 M/mm3 (4.00-5.60); RDW 20.9 % (11.9-15.9); WHITE BLOOD COUNT 3.5 K/mm3 (4.0-10.0)
[2023-02-14 17:22] LABS: INR 1.59 (0.83-1.09); PROTHROMBIN TIME (PATIENT) 18.4 SEC (9.7-13.0)
[2023-02-14 17:24] LABS: ACTIVATED PTT 41.9 SECONDS (25.2-36.5)
[2023-02-14 17:31] LABS: POTASSIUM 3.3 mmol/L (3.5-5.1)
[2023-02-14 17:33] LABS: BLOOD UREA NITROGEN 4.2 mg/dL (7-18); CALCIUM 7.1 mg/dL (8.5-10.1); MAGNESIUM 1.7 mg/dL (1.8-2.4)
[2023-02-14 17:36] LABS: CREATININE 0.5 mg/dL (0.55-1.3); PHOSPHOROUS 3.8 mg/dL (2.5-4.9)
[2023-02-14 17:38] LABS: BILIRUBIN,TOTAL 1.8 mg/dL (0.2-1); TOT PROT 7.9 g/dl (6.4-8.2)
[2023-02-14 17:56] LABS: ANISOCYTOSIS 1+; MACROCYTOSIS 0
[2023-02-14] MEDS ORDERED: MAGNESIUM SULF 50% (8.12 MEQ/2 ML-1 GM VIAL) IVPB ONE (18:59)
[2023-02-14] MEDS ORDERED: POTASSIUM CHLORIDE ORAL LIQUID 20 MEQ/15 ML PO ONE (19:00)
[2023-02-14] MEDS ORDERED: KCL 10 MEQ IVPB 10 MEQ/100 ML INFUS.BAG IVPB SCH (19:00)
[2023-02-14] MEDS ORDERED: POTASSIUM CHLORIDE ORAL LIQUID 20 MEQ/15 ML ONE (19:08)
[2023-02-14] MEDS ORDERED: MAGNESIUM 1GM/D5W - 1 GM/100 ML IVPB IVPB ONE ×2 (19:08→19:21)
[2023-02-14] MEDS ORDERED: KCL 10 MEQ IVPB 10 MEQ/100 ML INFUS.BAG IVPB ONE (19:08)
[2023-02-14] MEDS ORDERED: FOLIC ACID INJECTION - 1 MG, THIAMINE HCL 100 MG, MULTIVIT INJECTION ADULT 10 ML in SOD... IVPB ONE (22:53)
[2023-02-15 00:15] LABS: HIV INTERPRETATION NEGATIVE (NEGATIVE)
[2023-02-15] MEDS ORDERED: FOLIC ACID INJECTION - 1 MG, THIAMINE HCL 100 MG, MULTIVIT INJECTION ADULT 10 ML in SOD... IVPB ONE ×2 (01:40→02:45)
[2023-02-15] MEDS ORDERED: MAGNESIUM SULF 50% (8.12 MEQ/2 ML-1 GM VIAL) IVPB ONE ×2 (01:41→09:24)
[2023-02-15] MEDS ORDERED: LORazepam 2 MG TABLET PO PRN (01:42)
[2023-02-15] MEDS ORDERED: POTASSIUM CHLORIDE ORAL LIQUID 20 MEQ/15 ML PO ONE (01:42)
[2023-02-15] MEDS ORDERED: MAGNESIUM OXIDE 400 MG TABLET (FP) PO ONE (01:58)
[2023-02-15] MEDS: THIAMINE HCL 100 MG TABLET (FP) PO SCH ×2 (02:12→10:09)
[2023-02-15 02:35] LABS: BASO % 0.6 % (0-2.0); EOS % 4.3 % (0-4.5); HEMATOCRIT 22.1 % (35.4-49); HEMOGLOBIN 7.2 GM/dL (11.7-16.9); LYMPH % 38.4 % (8-40); MCH 27.4 pg (25.7-33.7); MCHC 32.6 g/dl (32.0-35.9); MEAN CELL VOLUME 84.2 fl (80-96); MEAN PLT VOLUME 7.1 fl (7.5-11.1); MONO % 15.2 % (3.8-10.2); NEUT % 41.5 % (42.8-82.8); PLATELET COUNT 60 10^3/uL (134-434); RBC 2.62 M/mm3 (4.00-5.60); RDW 20.9 % (11.9-15.9); WHITE BLOOD COUNT 2.5 K/mm3 (4.0-10.0)
[2023-02-15] MEDS ORDERED: LORazepam 1 MG TABLET PO PRN (05:00)
[2023-02-15 08:37] LABS: HEMATOCRIT 22.2 % (35.4-49); HEMOGLOBIN 7.2 GM/dL (11.7-16.9); MCH 27.5 pg (25.7-33.7); MCHC 32.7 g/dl (32.0-35.9); MEAN CELL VOLUME 84.1 fl (80-96); MEAN PLT VOLUME 7.3 fl (7.5-11.1); PLATELET COUNT 57 10^3/uL (134-434); RBC 2.64 M/mm3 (4.00-5.60); WHITE BLOOD COUNT 2.1 K/mm3 (4.0-10.0)
[2023-02-15 08:54] LABS: ALBUMIN 1.9 g/dl (3.4-5.0); BLOOD UREA NITROGEN 5.3 mg/dL (7-18); CALCIUM 7.2 mg/dL (8.5-10.1)
[2023-02-15 08:55] LABS: MAGNESIUM 1.6 mg/dL (1.8-2.4)
[2023-02-15 08:57] LABS: BILIRUBIN,TOTAL 1.9 mg/dL (0.2-1); CREATININE 0.4 mg/dL (0.55-1.3); PHOSPHOROUS 3.6 mg/dL (2.5-4.9); TOT PROT 7.3 g/dl (6.4-8.2)
[2023-02-15 09:42] VITALS: RESP 18
[2023-02-15] MEDS ORDERED: FOLIC ACID 1 MG TABLET (FP) PO SCH (10:00)
[2023-02-15] MEDS ORDERED: THIAMINE HCL 200 MG/2 ML VIAL IVPB SCH (10:00)
[2023-02-15 15:01] VITALS: BP 139/83; PULSE 89; TEMP 98.4
== END 2023-02-15 15:01 | disposition left against medical advice (07) ==
LOC: JER 15:45 → JERBED 02-15 00:12 → J4W 02-15 03:16
PROVIDERS: ADMIT Internal Medicine; ATTEND Internal Medicine
PROC: 3E0234Z Introduction of Serum, Toxoid and Vaccine into Muscle, Percutaneous Approach (ICD-10-PCS; principal; 2023-02-15)
PROC: 3E033GC Introduction of Other Therapeutic Substance into Peripheral Vein, Percutaneous Approach (ICD-10-PCS; 2023-02-15)
DX: S01.01XA Laceration without foreign body of scalp, initial encounter (principal); F10.920 Alcohol use, unspecified with intoxication, uncomplicated; W18.39XA Other fall on same level, initial encounter; Y93.89 Activity, other specified; Y92.89 Other specified places as the place of occurrence of the external cause; Y99.0 Civilian activity done for income or pay; R60.0 Localized edema; D61.818 Other pancytopenia
CPT/HCPCS: 0241U-QW; 36415; 70450-TC; 71260-TC; 72125-TC; 72131-TC; 74177-TC; 80053; 80307; 82607; 82746; 83735; 84100; 84484; 85025; 85027; 85610; 85730; 86705; 86850; 86900; 86901; 87389; 87517; 87522; 87799; 90471; 90715; 93005; 93010; 93971-TC; 96365; 96367; 96375; 96376; 99285-25; G0378; Q9967